=== PATIENT | male | born 1960 | race Caucasian/White ===

== ENCOUNTER → 2019-07-13 08:30 | Outpatient (BNVA) | payer MEDICAID, SELFPAY | PROVIDERS: Family Provider Internal Medicine; Visit Provider Nurse Practitioner Family | DX: N41.9 Inflammatory disease of prostate, unspecified (principal); N40.1 Benign prostatic hyperplasia with lower urinary tract symptoms; N13.8 Other obstructive and reflux uropathy; N52.9 Male erectile dysfunction, unspecified | CPT/HCPCS: 81001 ==

== ENCOUNTER → 2019-09-07 09:52 | Outpatient (BNVA) | payer MEDICAID, SELFPAY | PROVIDERS: Family Provider Internal Medicine; PCP Internal Medicine; Visit Provider Urology | DX: N13.8 Other obstructive and reflux uropathy (principal); N40.1 Benign prostatic hyperplasia with lower urinary tract symptoms; R30.0 Dysuria | CPT/HCPCS: 81001 ==

== ENCOUNTER → 2019-12-20 08:21 | Outpatient (BNVA) | payer MEDICAID, SELFPAY | PROVIDERS: Family Provider Internal Medicine; PCP Internal Medicine; Visit Provider Urology | DX: N40.1 Benign prostatic hyperplasia with lower urinary tract symptoms (principal); N13.8 Other obstructive and reflux uropathy | CPT/HCPCS: 81001 ==

== ENCOUNTER → 2020-03-07 08:15 | Outpatient (BNVA) | payer MEDICAID, SELFPAY | PROVIDERS: Family Provider Internal Medicine; PCP Internal Medicine; Visit Provider Urology | DX: N41.1 Chronic prostatitis (principal); N40.1 Benign prostatic hyperplasia with lower urinary tract symptoms; N13.8 Other obstructive and reflux uropathy; A63.0 Anogenital (venereal) warts | CPT/HCPCS: 81003 ==

== ENCOUNTER 2020-07-09 08:50 | Outpatient (CLI) | payer MEDICAID, SELFPAY ==
[2020-07-09 09:25] VITALS: BMI 26.4
--- NOTE | 2020-07-09 09:30 | ECG_ITS ---
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 Interpretive Statements NAME OF STUDY: LEXISCAN SESTAMIBI STRESS TEST INDICATION: Chest Pain PROCEDURE: At the baseline, the blood pressure was 139/85 mmHg, oxygen saturation 97% with a heart rate of 50 bpm. The electrocardiogram showed sinus bradycardia, normal axis with possible old anteroseptal infarct. The Lexiscan was infused over a period of 20 seconds. A total of 0.4 milligrams of Lexiscan was infused. The stress phase was continued for a total of 5 minutes. Heart rate at the end of the stress phase was 146 bpm, oxygen saturation of 95% with a blood pressure of 206/86 mmHg. The EKG at the peak infusion revealed sinus tachycardia with 1 to 1-1/[address] segment depression in inferolateral leads. Sestamibi was injected 20 seconds after the Lexiscan infusion. Blood pressure at the end of the recovery phase was 131/94 mmHg, oxygen saturation 96% with a heart rate of 76 beats per minute. CONCLUSION: 1. Equivocal EKG changes with the LexiScan infusion. 2. No LexiScan induced chest pain or cardiac arrhythmia. 3. Normal blood pressure and heart rate response. 4. Sestamibi/sestamibi perfusion scan pending; see separate report. Electronically Signed On 07-12-2020 17:40:55 CDT by Sharon Hanna M.D. [id number]
--- NOTE | 2020-07-09 09:31 | NMCV_ITS ---
NM concepcion perf SPECT r/s* [id number] Glenn Barron Age: 59 Gender: M : 1960 Exam Date: 07/09/2020 10:30 Ordering Phys: Chadd Diaz DO Technologist: RACHEL Gonzalez Exam Location: [facility] Indications: Chest pain STRESS TEST Please see separate stress test report in [facility] for full findings IMAGE PROTOCOL Rest/Stress 1 Exercise Day Radiopharmaceutical Dose (mCi) Administration Site Administered by Rest: Tc-99m 10.8 IV RACHEL Gonzalez Sestamibi Stress:Tc-99m 33.0 IV RACHEL Gabriel Sestamibi Rest: 09-Jul-2020 60 Discovery 630 Stress: 09-Jul-2020 30 Discovery 630 Radiopharmaceutical was injected at 88 % maximum heart rate. Images obtained in supine and prone position. SPECT RESULTS Technical Quality: Good Raw Data Analysis: Normal Image Corrections: No attenuation or motion correction applied Summed Stress Score: 4 Summed Rest Score: 7 Summed Difference Score: 0 PERFUSION FINDINGS Small sized perfusion abnormality of moderate severity of mid to apical inferior, mid to apical inferolateral and apical bhatia on rest images with improved tracer uptake on stress images. FUNCTIONAL RESULTS (calculated via Gated SPECT) Stress Image LV EF (%): 79 Stress EDV (mL):89 TID: 0.75 Stress ESV (mL):19 FUNCTIONAL FINDINGS: The left ventricle is normal in size. Transient Ischemia Dilatation of 0.75. There is normal left ventricular systolic function. The left ventricular ejection fraction is normal with a value of 79%. There is normal left ventricular wall thickening. Normal end-diastolic and end-systolic volumes. IMPRESSIONS 1. Small sized perfusion abnormality of mid to apical inferior, mid to apical inferolateral and apical bhatia with improved tracer uptake on stress images. 2. This very likely represents attenuation artifact in absence of regional wall motion abnormality. 3. Overall left ventricular systolic function is normal without regional wall motion abnormalities. 4. The left ventricular ejection fraction is normal with a value of 79%. 5. No coronary ischemia based on the study. Sharon Hanna MD (Electronically Signed) Final Date: 12 July 2020 17:38 S
[2020-07-09 12:08] VITALS: BP 132/84; PULSE 87
== END 2020-07-09 08:51 | disposition home or self-care (01) ==
LOC: CDL 08:54
PROVIDERS: PCP Internal Medicine; Visit Provider Internal Medicine
DX: R07.9 Chest pain, unspecified (principal)
CPT/HCPCS: 78452; 93017; A9500

== ENCOUNTER → 2021-03-07 08:06 | Outpatient (BNVA) | payer MEDICAID, SELFPAY | PROVIDERS: PCP Internal Medicine; Visit Provider Urology | DX: Z12.5 Encounter for screening for malignant neoplasm of prostate (principal); N13.8 Other obstructive and reflux uropathy; N41.1 Chronic prostatitis; N40.1 Benign prostatic hyperplasia with lower urinary tract symptoms | CPT/HCPCS: 81003; G0103 ==

== ENCOUNTER 2021-04-12 08:13 | Inpatient (IN) | payer MEDICAID, SELFPAY ==
[2021-04-12] VITALS (19 sets, daily range): BP systolic 113–138; BP diastolic 69–95; PULSE 63–108; RESP 13–20; TEMP 36.4–36.9; O2SAT 78–97; BMI 26.7
[2021-04-12 08:59] LABS: ABG PCO2 39.6 mmHg (35-45); ABG PH Result 7.47 (7.35-7.45); Alveolar-Arterial Oxygen Gradi 28.3 mmHg (5-10); Base Excess ABG 4.9 mmol/L (-2.0-2.0); Blood Gas Allen Test Pos; Blood Gas Operator Identificat CAK; Blood Gas Sample Site Radial, left; Blood Gas Sample Type Arterial; Carboxyhemoglobin 1.4 %THgb (0.4-20.1); HCO3 ABG 28.9 mmol/L (22-26); HGB O2 Sat 88.5 % (95-100); Ionized Calcium Level - ABG 1.2 mmol/L (1.1-1.4); Methemoglobin 0.7 % (0.4-1.5); Oxygen Device NC; Oxygen Saturation ABG 90.5; Total Hemoglobin 15.3 g/dL (14-18)
--- NOTE | 2021-04-12 09:26 | XR_ITS ---
WS: [id number] XR chest 1V portable [id number] REASON FOR EXAM: dyspnea/hypoxia FINDINGS: Compared to previous examination of 05/30/2020 there appears to be an ill-defined area of opacity in th e right mid lung field adjacent to the minor fissure. Possibly similar abnormality in the medial righ t lower lung. No other significant interval change or new finding. XR/XR chest 1V portable [id number] IMPRESSION: Lung opacities of unknown chronicity in the right lung which may represent area s of mucous plugging or atelectasis however early findings of pneumonitis not r eadily excluded. Follow-up chest x-ray is recommended as clinically warranted.
--- NOTE | 2021-04-12 09:54 | W.ED.COVID ---
HPI - COVID General: Chief Complaint: Shortness of Breath/Dyspnea Stated Complaint: LOW 02, FEVER, COUGH, WEAKNESS Time Seen by Provider: 04/12/21 08:31 Triage information: Has fever, cough or shortness of breath. Exposure to COVID + person last 14 days History of Present Illness: HPI Narrative: 60-year-old male who presents to the emergency room from his primary care doctor's office. He has significant COVID-like symptoms. He has been sick for the last 10 days he is increasingly shortness of breath myalgia and fever. He is not having any labored respirations. He reported O2 sats at 75% at the doctor's office. We had a little bit better when he first arrived here he was 78% on room air at 6 L by nasal cannula patient sats were around 90 to 91% he was changed over to heated high flow. He has had some loose stools but that is already resolved. Has not previously been vaccinated. MD complaint: has COVID symptoms Prior covid testing: no COVID 19 common symptoms: positive fever(s), chills, cough, non-productive cough, dyspnea, fatigue, body aches, nasal congestion and diarrhea COVID 19 other sytmptoms: positive requiring oxygen; negative chest pain Onset (ago): day(s) (10) Severity: severe Treatment prior to arrival: none COVID Results: SARS-CoV-2 (PCR) Detected (NOT DETECT) A 04/12/21 09:47 04/12/21 Coronavirus Type 229E (PCR) Not detected (NOT DETECT) 04/12/21 09:47 04/12/21 Review of Systems Const: Reports: fever(s), chills, body aches and fatigue ENMT: Reports: nasal congestion Card: Denies: chest pain, edema, dyspnea on exertion or orthopnea Resp: Reports: dyspnea and non-productive cough GI: Reports: diarrhea : Denies: flank pain, dysuria, urinary frequency or urinary urgency Skin/Breast: Denies: rash or pruritus PFSH ED PFSH: Medical History (Updated 04/15/21 @ 08:06 by Ba Oliver DO) Anxiety Back fracture BPH w urinary obs/LUTS Chronic back pain Colon polyps Erectile dysfunction GERD (gastroesophageal reflux disease) Surgical History History of surgery of head Family History Mother , 86 No problems noted. Father , 83 Cancer colon Social History (Updated 04/12/21 @ 10:28 by Richie Tovar MD) Smoking and tobacco status: former smoker Alcohol intake: current Alcohol intake frequency: 0-2 Drinks per Day Substance/Drug Use: current Substance/Drug use frequency: daily Substance/Drug use type: Marijuana Marital status: Single Current occupational status: disabled History of recent travel: No Physical Exam Const: GENERAL APPEARANCE: cooperative and comfortable ORIENTATION/CONSCIOUSNESS: Yes awake, Yes oriented to person, Yes oriented to place and Yes oriented to time HENMT: COMMON NORMALS: normocephalic, atraumatic and hearing grossly normal bilaterally HEAD & SCALP: normocephalic and atraumatic Eye: COMMON NORMALS: Equal, round and reactive pupils present, EOMs intact bilaterally, conjunctivae normal and no scleral icterus CONJUNCTIVA: Yes conjunctivae normal PUPIL: Yes Equal, round and reactive pupils present Neck/C-Spine: COMMON NORMALS: full ROM, no lymphadenopathy, supple and no JVD Lymph: LYMPHATIC: no lymphadenopathy noted and no lymphedema noted Resp: COMMON NORMALS: normal respiratory effort, No retractions and No use of accessory muscles AUSCULTATION: crackles and wheezes Cardio: COMMON NORMALS: no JVD, regular rate, regular rhythm and No murmurs present (Cardio) RATE: regular rate RHYTHM: regular rhythm GI: COMMON NORMALS: Soft to palpation and No hepatosplenomegaly present AUSCULTATION: Yes normoactive bowel sounds PALPATION: Yes Soft to palpation, No Tenderness to palpation present (GI), No Guarding due to palpation present (GI) and Yes No hepatosplenomegaly present Extremity: COMMON NORMALS: normal to inspection, capillary refill normal, no clubbing, cyanosis or edema, no calf tenderness and no pedal edema Neuro: SENSORIUM/ORIENTATION: Yes oriented to person, Yes oriented to place and Yes oriented to time Skin: COMMON NORMALS: no rashes or lesions noted GENERAL SKIN EXAM: no rashes or lesions noted Course Vital Signs: Vital signs: Vital Signs Temperature 98.4 F 04/15/21 07:45 Pulse Rate 76 04/15/21 07:45 Respiratory Rate 16 04/15/21 07:45 Blood Pressure 122/79 04/15/21 07:45 Pulse Oximetry 92 04/15/21 07:45 MDM - COVID MDM Narrative: Medical decision making narrative: Presents with room air O2 sats at 78% improved with oxygen supplementation. Patient is COVID-positive. Discussed with hospitalist orders written. Lab Data: Labs: Lab Results 04/12/21 04/12/21 04/12/21 08:48 09:47 09:47 WBC 7.9 10^3/uL 10^3/ uL (4.0-10.0) RBC 4.89 10^6/uL 10^6 /uL (4.1-5.3) Hgb 14.9 g/dL g/dL (11.7-16.6) Hct 43.5 % % (42.0-52.0) MCV 89.0 fl fl (80-94) MCH 30.5 pg pg (28.0-34.0) MCHC 34.3 g/dL g/dL (30.0-36.0) RDW 11.6 % L % (12.1-15.1) Plt Count 331 10^3/cmm 10^3 /cmm (130-400) MPV 10.4 fL fL (7.4-10.4) Neut % (Auto) 84.9 % % Lymph % (Auto) 5.6 % % [place] % (Auto) 8.7 % % Eos % (Auto) 0.1 % % Baso % (Auto) 0.3 % % Neut # (Auto) 6.70 10^3/uL 10^3 /uL (1.8-7.7) Lymph # (Auto) 0.4 10^3/uL L 10^ 3/uL (0.8-4.8) [place] # (Auto) 0.7 10^3/uL 10^3/ uL (0.2-0.9) Eos # (Auto) 0.0 10^3/uL 10^3/ uL (0.0-0.8) Baso # (Auto) 0.0 10^3/uL 10^3/ uL (0.0-0.1) Nucleated RBC % (a uto) 0 % % Nucleated RBCs # 0.0 /100WBC /100W BC D-Dimer 1.04 ug/mIFEU H u g/mIFEU (0-0.59) Specimen Type Arterial Sample Site Radial, left ABG pH 7.47 H (7.35-7.45) ABG pCO2 39.6 mmHg mmHg (35-45) ABG pO2 55.0 mmHg L mmHg (80.0-100.0) ABG HCO3 28.9 mmol/L H mmo l/L (22-26) ABG O2 Saturation 90.5 ABG Base Excess 4.9 mmol/L H mmol /L (-2.0-2.0) Keshav Test Pos A-a O2 Gradient 28.3 mmHg H mmHg (5-10) Hematocrit 47.0 % % (42-52) Hgb O2 Saturation 88.5 % L % (95-100) Carboxyhemoglobin 1.4 %THgb %THgb (0.4-20.1) Methemoglobin 0.7 % % (0.4-1.5) Total Hemoglobin 15.3 g/dL g/dL (14-18) Sodium 136.0 mmol/L mmol /L (131-143) Potassium 3.0 mmol/L L mmol /L (3.5-5.0) Glucose 129.0 mg/dL H mg/ dL (70-115) Ionized Calcium 1.2 mmol/L mmol/L (1.1-1.4) O2 Delivery Device Nc O2 Liters/Min 5.0 % % FiO2 45.0 % % Sales Representative Aircraft ID Cak Chloride Carbon Dioxide Anion Gap BUN Creatinine GFR Calculation Calculated Osmolal ity Lactic Acid Calcium Magnesium Total Bilirubin AST ALT Alkaline Phosphata se C-Reactive Protein Total Protein Albumin Globulin Procalcitonin Coronavirus 229E ( PCR) SARS-CoV-2 (PCR) 04/12/21 04/12/21 04/12/21 09:47 09:47 09:47 WBC RBC Hgb Hct MCV MCH MCHC RDW Plt Count MPV Neut % (Auto) Lymph % (Auto) [place] % (Auto) Eos % (Auto) Baso % (Auto) Neut # (Auto) Lymph # (Auto) [place] # (Auto) Eos # (Auto) Baso # (Auto) Nucleated RBC % (a uto) Nucleated RBCs # D-Dimer Specimen Type Sample Site ABG pH ABG pCO2 ABG pO2 ABG HCO3 ABG O2 Saturation ABG Base Excess Keshav Test A-a O2 Gradient Hematocrit Hgb O2 Saturation Carboxyhemoglobin Methemoglobin Total Hemoglobin Sodium 133 mmol/L L mmol /L (136-145) Potassium 3.2 mmol/L L mmol /L (3.5-5.1) Glucose 116 mg/dL H mg/dL (65-115) Ionized Calcium O2 Delivery Device O2 Liters/Min FiO2 Sales Representative Aircraft ID Chloride 94 mmol/L L mmol/ L (98-107) Carbon Dioxide 28 mmol/L mmol/L (22-29) Anion Gap 14.2 (5-19) BUN 8 mg/dL mg/dL (8-23) Creatinine 0.7 mg/dL mg/dL (0.7-1.2) GFR Calculation 115.0 mL/min mL/m in (90-130) Calculated Osmolal ity 275 mOsm/kg L mOs m/kg (285-295) Lactic Acid 1.4 mmol/L mmol/L (0.5-2.2) Calcium 8.4 mg/dL L mg/dL (8.5-10.5) Magnesium Total Bilirubin 0.4 mg/dL mg/dL (0.15-1.2) AST 38 U/L U/L (0-40) ALT 31 U/L U/L (0-41) Alkaline Phosphata se 88 IU/L IU/L (40-130) C-Reactive Protein 103.4 mg/L H mg/L (0.0-4.9) Total Protein 6.7 g/dL g/dL (6.6-8.7) Albumin 3.4 g/dL L g/dL (3.5-5.2) Globulin 3.3 g/dL g/dL (1.3-4.6) Procalcitonin 0.07 ng/mL ng/mL (0-0.5) Coronavirus 229E ( PCR) Not detected (NOT DETECT) SARS-CoV-2 (PCR) Detected A (NOT DETECT) 04/12/21 09:47 WBC RBC Hgb Hct MCV MCH MCHC RDW Plt Count MPV Neut % (Auto) Lymph % (Auto) [place] % (Auto) Eos % (Auto) Baso % (Auto) Neut # (Auto) Lymph # (Auto) [place] # (Auto) Eos # (Auto) Baso # (Auto) Nucleated RBC % (a uto) Nucleated RBCs # D-Dimer Specimen Type Sample Site ABG pH ABG pCO2 ABG pO2 ABG HCO3 ABG O2 Saturation ABG Base Excess Keshav Test A-a O2 Gradient Hematocrit Hgb O2 Saturation Carboxyhemoglobin Methemoglobin Total Hemoglobin Sodium Potassium Glucose Ionized Calcium O2 Delivery Device O2 Liters/Min FiO2 Sales Representative Aircraft ID Chloride Carbon Dioxide Anion Gap BUN Creatinine GFR Calculation Calculated Osmolal ity Lactic Acid Calcium Magnesium 2.3 mg/dL mg/dL (1.7-2.3) Total Bilirubin AST ALT Alkaline Phosphata se C-Reactive Protein Total Protein Albumin Globulin Procalcitonin Coronavirus 229E ( PCR) SARS-CoV-2 (PCR) COVID Results: SARS-CoV-2 (PCR) Detected (NOT DETECT) A 04/12/21 09:47 04/12/21 Coronavirus Type 229E (PCR) Not detected (NOT DETECT) 04/12/21 09:47 04/12/21 Discharge Plan Discharge Patient Disposition: Admitted As Inpatient Admit Provider: Richie Tovar Clinical Impression: Pneumonia due to COVID-19 virus, Acute respiratory failure with hypoxia, Hypokalemia Condition: Stable Coding Level of Care Code ED Relocation Manager for Chg Fwd Exam Comprehensive
[2021-04-12 09:59] LABS: Basophils % 0.3 %; Eosinophils % 0.1 %; Hematocrit 43.5 % (42.0-52.0); Hemoglobin 14.9 g/dL (11.7-16.6); Lymphocytes # 0.4 10^3/uL (0.8-4.8); Lymphocytes % 5.6 %; Mean Corpuscular HGB Conc 34.3 g/dL (30.0-36.0); Mean Corpuscular Hemoglobin 30.5 pg (28.0-34.0); Mean Platelet Volume 10.4 fL (7.4-10.4); Monocytes # 0.7 10^3/uL (0.2-0.9); Monocytes % 8.7 %; Neutrophils % 84.9 %; Nucleated Red Blood Cells % 0 %; Platelet Count 331 10^3/cmm (130-400); Red Blood Count 4.89 10^6/uL (4.1-5.3); Red Cell Distribution Width 11.6 % (12.1-15.1); White Blood Count 7.9 10^3/uL (4.0-10.0)
[2021-04-12 10:17] LABS: Alanine Aminotransferase 31 U/L (0-41); Albumin Level 3.4 g/dL (3.5-5.2); Alkaline Phosphatase 88 IU/L (40-130); Anion Gap 14.2 (5-19); Aspartate Amino Transferase 38 U/L (0-40); Blood Urea Nitrogen 8 mg/dL (8-23); C Reactive Protein 103.4 mg/L (0.0-4.9); Calcium 8.4 mg/dL (8.5-10.5); Carbon Dioxide 28 mmol/L (22-29); Chloride 94 mmol/L (98-107); Globulin 3.3 g/dL (1.3-4.6); Glucose 116 mg/dL (65-115); Osmolality Calculated 275 mOsm/kg (285-295); Potassium 3.2 mmol/L (3.5-5.1); Sodium 133 mmol/L (136-145); Total Bilirubin 0.4 mg/dL (0.15-1.2); Total Protein 6.7 g/dL (6.6-8.7)
[2021-04-12 10:18] LABS: Lactic Sepsis W/Reflex 1.4 mmol/L (0.5-2.2)
[2021-04-12 10:23] LABS: D Dimer 1.04 ug/mIFEU (0-0.59)
[2021-04-12 10:24] LABS: Procalcitonin 0.07 ng/mL (0-0.5)
--- NOTE | 2021-04-12 10:25 | PM.HP ---
Providers/Chief Complaint Primary Care Provider: Chadd Diaz DO Chief Complaint: LOW 02, FEVER, COUGH, WEAKNESS History of Present Illness Glenn Barron is a 60 year old male presents to the ER from doctor's office with shortness of breath. He has history of cough, fever, congestion, body aches that started 9 days ago. His shortness of breath started 2-3 days ago and has been worsening. He tried taking amoxicillin from the feed store and Tylenol for the past 2 days. He is not vaccinated and has no previous history of COVID. He arrived to the ER with oxygen sat 78%. No vomiting or diarrhea. He still continues to take p.o. In the emergency department he received remdesivir, dexamethasone. Review of Systems General: Reports: 10 or more systems reviewed and unremarkable except in HPI and below Const: Reports: fever(s), chills, body aches and fatigue Eyes: Denies: change in vision ENMT: Denies: throat pain Card: Denies: chest pain Resp: Reports: dyspnea and non-productive cough GI: Denies: abdominal pain or hematochezia : Denies: flank pain Musc: Denies: neck pain Skin/Breast: Denies: rash Neuro: Reports: headache(s) Psych: Denies: depression Endo: Denies: polyuria Alex/Lymph: Denies: easy bruising All/Imm: Denies: urticaria Medications/Allergies Home Medications Medication Instructions Recorded Confirmed Last Taken Type alprazolam 1 mg tablet 1 mg PO QID PRN 07/13/19 04/12/21 Unknown History finasteride 5 mg tablet 5 mg PO QAM 07/13/19 04/12/21 Unknown History omeprazole 20 mg capsule,delayed 20 mg PO QAM 07/13/19 04/12/21 Unknown History release sildenafil 100 mg tablet 100 mg PO DAILY PRN #20 tab 03/07/21 04/12/21 Unknown Rx acetaminophen [Tylenol Ex Str 500 mg PO Q4H PRN 04/12/21 04/12/21 04/12/21 05:30 History Rapid Release] tamsulosin 0.8 mg PO BEDTIME 04/12/21 04/12/21 Unknown History Allergies Allergy/AdvReac Type Severity Reaction Status Date / Time No Known Allergies Allergy Verified 04/12/21 09:52 PFSH Acute PFSH: Medical History (Updated 04/12/21 @ 10:43 by Richie Tovar MD) Anxiety Back fracture BPH w urinary obs/LUTS Chronic back pain Colon polyps Erectile dysfunction GERD (gastroesophageal reflux disease) Surgical History History of surgery of head Family History Mother , 86 No problems noted. Father , 83 Cancer colon Social History (Updated 04/12/21 @ 10:28 by Richie Tovar MD) Smoking and tobacco status: former smoker Alcohol intake: current Alcohol intake frequency: 0-2 Drinks per Day Substance/Drug Use: current Substance/Drug use frequency: daily Substance/Drug use type: Marijuana Marital status: Single Current occupational status: disabled History of recent travel: No Other [facility] information: Denies history of surgery. Vitals/I&O/Wt Last Vital Signs Temp 98.4 F 04/12/21 08:33 Pulse 108 H 04/12/21 09:50 Resp 18 04/12/21 09:50 BP 132/70 04/12/21 09:50 Pulse Ox 93 04/12/21 09:50 Weight last 48 hrs Weight 90.718 kg Physical Exam Narrative: EXAM NARRATIVE: General exam is a white male, conversant, reporting he feels much less short of breath on oxygen. From what is documented he was significantly hypoxic, tachypneic, using accessory muscles previous to being put on high flow oxygen HEENT: Atraumatic normocephalic. Oropharynx clear. Neck is supple no lymphadenopathy or thyromegaly Cardiovascular slight tachycardia, no murmur Lungs a few crackles bilaterally Abdomen is soft, positive bowel sounds. No obvious organomegaly exam was deferred Extremities no cyanosis clubbing or edema, cap refill brisk Skin no rash Neuro no focal deficits. Data : 04/12/21 09:47 04/12/21 09:47 Micro: Microbiology 04/12/21 09:47 Blood Culture - Preliminary Blood SPECIMEN COLLECTED 04/12/21 09:30 Blood Culture - Preliminary Blood SPECIMEN COLLECTED Other data: Dimer is 1.04 ABG demonstrates a pH of 7.47, PCO2 40, PO2 of 55. This was done on 5 L Lactic acid 1.4 Calcium 8.4 LFTs normal CRP 103 Procalcitonin 0.07 Chest x-ray demonstrates some bilateral lung interstitial infiltrates. Blood cultures were drawn, sputum cultures ordered A&P Assessment and plan (1) Pneumonia due to COVID-19 virus: Continue dexamethasone started in the emergency department Continue remdesivir Pulmonary toilet Budesonide twice daily Repeat D-dimer tomorrow. If increasing consider CTA Lovenox for DVT prophylaxis Incentive spirometry, Acapella Considering severity of illness, no evidence of bacterial infection, start baricitinib Levaquin empirically Sputum culture. Blood cultures were drawn as well. Initiate baricitinib secondary to severity of illness. Status: Acute (2) Acute respiratory failure with hypoxia: See above Status: Acute (3) Hypokalemia: Supplement, check magnesium Status: Acute (4) Anxiety: Continue home medications Status: Acute Additional A&P Information Full code Lovenox for DVT prophylaxis Attestations Medical Necessity Statement*: Will need greater than 2 midnight stay for severe COVID-19 pneumonia with respiratory failure requiring high flow oxygen Time Spent in Patient Care: Greater than 35 minutes Coding Level of Care Code Acute Automotive Engineering Technician for [facility] Diagnoses Pneumonia due to COVID-19 virus U07.1; J12.82 Acute respiratory failure with hypoxia J96.01 Hypokalemia E87.6 Anxiety F41.9
[2021-04-12 11:04] LABS: Magnesium 2.3 mg/dL (1.7-2.3)
[2021-04-12] MEDS: potassium chloride ER 20 mEq Tablet 40 MEQ PO (11:08)
[2021-04-12] MEDS: dexamethasone 10 mg/mL INJ 6 MG IVP (11:08)
[2021-04-12] MEDS: remdesivir 200 MG in sodium chloride 0.9% (100 ml) 60 ML 100 MG IV (11:09)
[2021-04-12 11:44] LABS: Adenovirus Not Detected (NOT DETECT); Chlamydia Pneumoniae Not Detected (NOT DETECT); Coronavirus 229E,HKU1,NL63,OC4 Not Detected (NOT DETECT); Human Metapneumovirus Not Detected (NOT DETECT); Human Rhinovirus/Enterovirus Not Detected (NOT DETECT); Influenza A Not Detected (NOT DETECT); Influenza A H1 Not Detected (NOT DETECT); Influenza A H1-2009 Not Detected (NOT DETECT); Influenza A H3 Not Detected (NOT DETECT); Influenza B Not Detected (NOT DETECT); Mycoplasma Pneumoniae Not Detected (NOT DETECT); Parainfluenza Virus Type 1 Not Detected (NOT DETECT); Parainfluenza Virus Type 2 Not Detected (NOT DETECT); Parainfluenza Virus Type 3 Not Detected (NOT DETECT); Parainfluenza Virus Type 4 Not Detected (NOT DETECT); Respiratory Syncytial Virus A Not Detected (NOT DETECT); Respiratory Syncytial Virus B Not Detected (NOT DETECT); SARS-COV-2 Detected (NOT DETECT)
[2021-04-12] MEDS: levofloxacin-dextrose 5 % 750 MG/150 ML PREMIX 100 MG IV (15:52)
[2021-04-12] MEDS: enoxaparin 40 mg/0.4 mL Syringe SUBCUT (15:52)
--- NOTE | 2021-04-12 17:07 | PC.NURSE ---
Notified of COVID (+)
[2021-04-12] MEDS: tamsulosin 0.4 mg Capsule 0.8 MG PO (20:09)
[2021-04-12] MEDS: ALPRAZolam 0.5 mg Tablet 1 MG PO (20:09)
[2021-04-12] MEDS: budesonide 0.5 mg/2 mL Neb INHALATION (20:30)
[2021-04-12] MEDS: ipratropium-albuterol 3 mL Neb INHALATION (20:30)
--- NOTE | 2021-04-12 20:40 | PC.NURSE ---
Patient had stated to this nurse that he was upset and anxious about not getting his medication the way he takes it at home while this nurse was administering his night time medications. Patient stated he usually takes 1mg Xanax around 0900, [id number], and takes two 1mg Xanax at 3124-0304 to help him sleep and takes ex-lax. This nurse informed the patient that I would get a hold of the doctor and ask him to increase his medications to his home dose. This nurse educated the patient before talking to the doctor that they do not like to order high doses of xanax on covid patients because it can cause respiratory depression and that the patient's respiratory status was already depressed due to having covid. After speaking with the doctor, this nurse went back to inform the patient that his xanax was unable to be increased due to the respiratory depression and that the doctor would be putting in the order for a laxative. Patient stated, Well if I can't get them to order it the way I take it at home, I will just have my girlfriend bring in my medication from home. This nurse educated the patient that he would still have to have an order for it. Patient stated, I do have a prescription for it. This nurse continued to educate the patient that he would not be able to take his own home medication per his own schedule because nursing staff would need to know what medications and the strength of the medications in case something were to happen and that the patient still runs the risk of being in respiratory depression.
[2021-04-12] MEDS: sennosides 8.6 mg Tablet PO (22:24)
[2021-04-13] VITALS (18 sets, daily range): BP systolic 101–144; BP diastolic 63–75; PULSE 65–86; RESP 16–23; TEMP 36.5–37; O2SAT 89–94
[2021-04-13] MEDS: ipratropium-albuterol 3 mL Neb INHALATION ×5 (02:42→20:56)
[2021-04-13 04:15] LABS: Basophils % 0.1 %; Hematocrit 40.7 % (42.0-52.0); Lymphocytes # 0.5 10^3/uL (0.8-4.8); Mean Corpuscular HGB Conc 34.4 g/dL (30.0-36.0); Mean Corpuscular Hemoglobin 30.4 pg (28.0-34.0); Mean Corpuscular Volume 88.5 fl (80-94); Mean Platelet Volume 10.5 fL (7.4-10.4); Monocytes # 0.6 10^3/uL (0.2-0.9); Monocytes % 8.5 %; Neutrophils # 5.73 10^3/uL (1.8-7.7); Neutrophils % 84.1 %; Nucleated Red Blood Cells % 0 %; Platelet Count 345 10^3/cmm (130-400); Red Cell Distribution Width 11.5 % (12.1-15.1); White Blood Count 6.8 10^3/uL (4.0-10.0)
[2021-04-13 04:20] LABS: ABG PCO2 40.1 mmHg (35-45); ABG PH Result 7.48 (7.35-7.45); Arterial Blood Gas Hematocrit 47.6 % (42-52); Base Excess ABG 5.4 mmol/L (-2.0-2.0); Blood Gas Allen Test Pos; Blood Gas Sample Type Arterial; HCO3 ABG 29.5 mmol/L (22-26); PO2 ABG 55.8 mmHg (80.0-100.0)
[2021-04-13 04:23] LABS: Blood Gas Sample Site Radial, right; Oxygen Device HAG
[2021-04-13 04:34] LABS: Lactate (Lactic Acid level) 1.8 mmol/L (0.5-2.2)
[2021-04-13 04:39] LABS: INR 1.08 (0.8-1.2)
[2021-04-13 04:40] LABS: D Dimer 1.02 ug/mIFEU (0-0.59)
[2021-04-13 04:42] LABS: NT Pro B Type Natriuretic Pept 61 pg/mL (0-125); Procalcitonin 0.06 ng/mL (0-0.5)
[2021-04-13] MEDS: ALPRAZolam 0.5 mg Tablet 1 MG PO (04:46)
[2021-04-13 04:55] LABS: Alanine Aminotransferase 29 U/L (0-41); Albumin Level 3.2 g/dL (3.5-5.2); Alkaline Phosphatase 85 IU/L (40-130); Anion Gap 20.7 (5-19); Aspartate Amino Transferase 35 U/L (0-40); Blood Urea Nitrogen 13 mg/dL (8-23); C Reactive Protein 91.1 mg/L (0.0-4.9); Calcium 8.5 mg/dL (8.5-10.5); Carbon Dioxide 22 mmol/L (22-29); Chloride 98 mmol/L (98-107); Creatine Phosphokinase 65 U/L (39-308); Globulin 3.4 g/dL (1.3-4.6); Glomerular Filtration Rate 137.4 mL/min (90-130); Glucose 107 mg/dL (65-115); Magnesium 2.2 mg/dL (1.7-2.3); Osmolality Calculated 285 mOsm/kg (285-295); Phosphorus 3.2 mg/dL (2.5-4.5); Potassium 3.7 mmol/L (3.5-5.1); Sodium 137 mmol/L (136-145); Total Bilirubin 0.3 mg/dL (0.15-1.2); Total Protein 6.6 g/dL (6.6-8.7)
--- NOTE | 2021-04-13 05:06 | PC.NURSE ---
MEHUL Ruano informed the PRADEEP Shields Charge that the patient was complaining that he did not feel like this nurse had been in his room enough and that he was going to be speaking to the printed circuit boards contact printer due to this nurse being young and his medications not being administered the way he would like. This nurse went to speak with patient and asked the patient if he needed anything. Patient stated, No. I just thought the doctor said I would be able to get the Xanax around 0230 again. This nurse informed the patient that I had his Xanax with me to administer to him. After giving the patient his medications, this nurse educated the patient that his Xanax is ordered every six hours as needed and he would have to ask for it if he felt like he was getting anxious if he was not showing signs of anxiety. Patient stated, Well I am going to need it every six hours then or I am not going to be able to sleep. Patient stated I will probably just start saving the pills then and take them all together that way I get the dose I need. This nurse continued to educate the patient that he would not be able to do that again due to the medication causing more respiratory depression on top of his already depressed respiratory status. This nurse asked the patient if he needed anything else and informed the patient that I would be back in within an hour to administer some more of his medications because I could not give them before 0500. The patient stated he did not need anything else at this time.
[2021-04-13] MEDS: remdesivir 100 MG in sodium chloride 0.9% (100 ml) 80 ML IV (05:43)
[2021-04-13] MEDS: finasteride 5 mg Tablet PO (05:43)
[2021-04-13] MEDS: dexamethasone 10 mg/mL INJ 6 MG IVP (08:59)
[2021-04-13] MEDS: pantoprazole DR 40 mg Tablet PO (08:59)
--- NOTE | 2021-04-13 09:42 | CTR_ITS ---
PROCEDURE INFORMATION: Exam: CTA Chest With Contrast Exam date and time: 04/13/2021 9:42 AM Age: 60 years old Clinical indication: Cough and shortness of breath; Patient HX: SOB. Cough, covid+; Additional info: Covid 19 TECHNIQUE: Imaging protocol: Computed tomographic angiography of the chest with contrast. 3D rendering (Not supervised by radiologist): MIP and/or 3D reconstructed images were created by the technologist. Radiation optimization: All CT scans at this facility use at least one of these dose optimization techniques: automated exposure control; mA and/or kV adjustment per patient size (includes targeted exams where dose is matched to clinical indication); or iterative reconstruction. Contrast material: .OMNI 350; Contrast volume: 59 ml; Contrast route: INTRAVENOUS (IV); COMPARISON: CR XR chest 1V portable [id number] 04/12/2021 9:32 AM RADIATION DOSE METRICS: Total DLP (mGy-cm): 640.45 FINDINGS: Pulmonary arteries: No sign of acute pulmonary embolism. Aorta: No thoracic aortic aneurysm or dissection when allowing for pulsation artifact. Lungs: There is bilateral, multifocal pulmonary ground-glass opacification which could be due to pneumonia, including the possibility of COVID-19 pneumonia. There is bilateral paraseptal emphysema. There is right lower lobe bronchiectasis. Prior pulmonary granulomatous disease. Pleural spaces: No pneumothorax. No pleural effusion. Heart: The heart is not enlarged. No pericardial effusion. There is coronary artery disease. Lymph nodes: Slightly prominent, noncalcified mediastinal and hilar lymph nodes. There are calcified right hilar and adjacent mediastinal lymph nodes from prior granulomatous disease. Kidneys and ureters: There is a 1.9 cm simple appearing left renal cyst. Bones/joints: No acute osseous abnormality. Soft tissues: No acute soft tissue abnormality. CT/CT angio chest PE protcl [id number] IMPRESSION: 1. No sign of acute pulmonary embolism. 2. Bilateral airspace disease which could be due to COVID-19 pneumonia. COMMENTS: Consistent with the [employer]'s Incidental Findings Committee white paper (J Am Jose Luis Radiol 2018): Any incidental renal lesion less than 1 cm or classified as too small to characterize, or any incidental cystic renal lesion characterized as simple-appearing, is likely benign. No follow-up imaging is recommended for these lesions per consensus recommendations based on imaging criteria.
--- NOTE | 2021-04-13 09:43 | ECG_ITS ---
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
--- NOTE | 2021-04-13 11:43 | ECG_ITS ---
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
[2021-04-13 11:48] LABS: Troponin(5th) Baseline 6 ng/L (0-15)
[2021-04-13] MEDS: azithromycin 500 MG in sodium chloride 0.9% 250 ML 250 MG IV (12:37)
[2021-04-13] MEDS: cefTRIAXone 1,000 MG in sodium chloride 0.9% (plus) 50 ML 100 MG IV (12:37)
--- NOTE | 2021-04-13 12:50 | P.PN_ITS ---
Subjective Subjective: Interval history: Patient was seen this morning, he is tell me that he did not get much sleep last night, as he takes alprazolam 1 mg at noon, 2 mg at 6 PM which helps him fall asleep, and he uses another milligram as needed between noon and 6 PM Vitals/I&O/Wt Last Vital Signs Temp 98.6 F 04/13/21 12:00 Pulse 75 04/13/21 12:00 Resp 20 H 04/13/21 12:00 BP 118/70 04/13/21 12:00 Pulse Ox 91 04/13/21 12:00 04/12/21 04/13/21 04/13/21 22:59 06:59 14:59 Intake Total 1010 / 1010 380 / 1390 Output Total 100 / 100 700 / 800 Balance 910 / 910 -320 / 590 Weight last 48 hrs Weight 87.18 kg Weight 90.718 kg Physical Exam Const: COMMON NORMALS: no acute distress and patient oriented x3 Resp: COMMON NORMALS: normal respiratory effort, No retractions and No use of accessory muscles AUSCULTATION: diminished lung sounds diffuse Cardio: COMMON NORMALS: regular rate, regular rhythm, S1 normal heart sound present and S2 normal heart sound present RATE: regular rate RHYTHM: regular rhythm HEART SOUNDS: S1 normal heart sound present and S2 normal heart sound present GI: COMMON NORMALS: Normal to inspection, nondistended, normoactive bowel soun ds present, Soft to palpation and non-tender PALPATION: Yes Soft to palpation Extremity: COMMON NORMALS: no pedal edema Neuro: COMMON NORMALS: patient oriented x3 Psych: COMMON NORMALS: mental status grossly normal Data : 04/13/21 03:47 04/13/21 03:47 Micro: Microbiology 04/12/21 09:47 Blood Culture - Preliminary Blood NEGATIVE TO DATE 04/12/21 09:30 Blood Culture - Preliminary Blood NEGATIVE TO DATE A&P Assessment and plan (1) Pneumonia due to COVID-19 virus: Decadron day 2 of 10 Remdesivir day 2 of 5 Perez cc neb day 2 of 14 Pulmonary toilet Budesonide twice daily CT angiogram of the chest pending Venous ultrasound negative for DVT Incentive spirometry, Acapella Expand antibiotic coverage to Rocephin and azithromycin for second bacterial pneumonia Sputum culture. Blood cultures were drawn as well. Change alprazolam to 1 mg at noon, 2 mg at 6 PM Status: Acute (2) Acute respiratory failure with hypoxia: See above Status: Acute (3) Hypokalemia: Supplement, check magnesium Status: Acute (4) Anxiety: Continue home medications Status: Acute Additional A&P Information Full code Lovenox for DVT prophylaxis Attestations Medical Necessity Statement*: Patient requires hospitalization due to pneumonia due to COVID-19 Coding Level of Care Code Acute Pottery Machine Operator for [facility] Diagnoses Pneumonia due to COVID-19 virus U07.1; J12.82 Acute respiratory failure with hypoxia J96.01 Hypokalemia E87.6 Anxiety F41.9
[2021-04-13] MEDS: enoxaparin 40 mg/0.4 mL Syringe SUBCUT (13:32)
[2021-04-13 14:02] LABS: Troponin 5 2HR 7.07 ng/L (0-15); Troponin 5 2HR Delta 1.07 ABS# (0-10)
[2021-04-13] MEDS: iohexol 350 mg/mL 100 mL Btl IV (14:30)
[2021-04-13] MEDS: budesonide 0.5 mg/2 mL Neb INHALATION ×2 (15:30→20:56)
--- NOTE | 2021-04-13 15:43 | ECG_ITS ---
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
[2021-04-13 18:14] LABS: Troponin 5 6HR 6.17 ng/L (0-15); Troponin 5 6HR Delta 0.17 ng/L (0-12)
--- NOTE | 2021-04-13 18:46 | USR_ITS ---
PROCEDURE INFORMATION: Exam: US Duplex Lower Extremity Veins, Bilateral Exam date and time: 04/13/2021 6:46 PM Age: 60 years old Clinical indication: Shortness of breath; DVT TECHNIQUE: Imaging protocol: Real-time duplex ultrasound of the extremities with 2-D guerra scale, color Doppler flow and spectral waveform analysis with image documentation. Complete exam focused on the bilateral lower extremity veins. COMPARISON: No relevant prior studies available. FINDINGS: Right deep veins: The common femoral, femoral, proximal profunda femoral and popliteal veins are patent. Normal Doppler waveforms. Normal compressibility and/or augmentation response. Right superficial veins: Saphenofemoral junction is patent. Left deep veins: The common femoral, femoral, proximal profunda femoral and popliteal veins are patent. Normal Doppler waveforms. Normal compressibility and/or augmentation response. Left superficial veins: Saphenofemoral junction is patent. Soft tissues: No acute soft tissue abnormality. US/[place] [id number] IMPRESSION: No evidence of deep vein thrombosis.
[2021-04-13] MEDS: tamsulosin 0.4 mg Capsule 0.8 MG PO (19:49)
[2021-04-13] MEDS: sennosides 8.6 mg Tablet PO (19:49)
[2021-04-14] VITALS (20 sets, daily range): BP systolic 102–126; BP diastolic 63–74; PULSE 43–86; RESP 16–24; TEMP 36.4–36.7; O2SAT 90–98
[2021-04-14] MEDS: ipratropium-albuterol 3 mL Neb INHALATION ×4 (02:08→20:14)
[2021-04-14 05:41] LABS: ABG PCO2 39.5 mmHg (35-45); ABG PH Result 7.49 (7.35-7.45); Arterial Blood Gas Hematocrit 49.5 % (42-52); Base Excess ABG 6.1 mmol/L (-2.0-2.0); Blood Gas Allen Test Pos; Blood Gas Operator Identificat glc; Blood Gas Sample Site Radial, right; Blood Gas Sample Type Arterial; HCO3 ABG 29.9 mmol/L (22-26); Oxygen Device HAG; PO2 ABG 50.1 mmHg (80.0-100.0)
[2021-04-14] MEDS: remdesivir 100 MG in sodium chloride 0.9% (100 ml) 80 ML IV (05:43)
[2021-04-14 05:47] LABS: Eosinophils % 0.1 %; Hematocrit 38.9 % (42.0-52.0); Hemoglobin 13.2 g/dL (11.7-16.6); Lymphocytes # 0.5 10^3/uL (0.8-4.8); Lymphocytes % 4.6 %; Mean Corpuscular HGB Conc 33.9 g/dL (30.0-36.0); Mean Corpuscular Hemoglobin 30.7 pg (28.0-34.0); Mean Corpuscular Volume 90.5 fl (80-94); Mean Platelet Volume 10.9 fL (7.4-10.4); Monocytes # 0.7 10^3/uL (0.2-0.9); Monocytes % 6.4 %; Neutrophils # 9.11 10^3/uL (1.8-7.7); Neutrophils % 88.2 %; Nucleated Red Blood Cells % 0 %; Platelet Count 385 10^3/cmm (130-400); Red Cell Distribution Width 11.6 % (12.1-15.1); White Blood Count 10.3 10^3/uL (4.0-10.0)
[2021-04-14 05:55] LABS: INR 1.06 (0.8-1.2)
[2021-04-14 06:07] LABS: Lactate (Lactic Acid level) 1.3 mmol/L (0.5-2.2)
[2021-04-14 06:17] LABS: NT Pro B Type Natriuretic Pept 80 pg/mL (0-125); Procalcitonin 0.05 ng/mL (0-0.5)
[2021-04-14 06:28] LABS: Alanine Aminotransferase 24 U/L (0-41); Albumin Level 2.9 g/dL (3.5-5.2); Alkaline Phosphatase 75 IU/L (40-130); Anion Gap 14.9 (5-19); Aspartate Amino Transferase 23 U/L (0-40); Blood Urea Nitrogen 16 mg/dL (8-23); C Reactive Protein 32.5 mg/L (0.0-4.9); Calcium 8.3 mg/dL (8.5-10.5); Carbon Dioxide 26 mmol/L (22-29); Chloride 101 mmol/L (98-107); Creatine Phosphokinase 112 U/L (39-308); Globulin 2.9 g/dL (1.3-4.6); Glucose 101 mg/dL (65-115); Magnesium 2.4 mg/dL (1.7-2.3); Osmolality Calculated 287 mOsm/kg (285-295); Potassium 3.9 mmol/L (3.5-5.1); Sodium 138 mmol/L (136-145); Total Bilirubin 0.2 mg/dL (0.15-1.2); Total Protein 5.8 g/dL (6.6-8.7)
--- NOTE | 2021-04-14 07:00 | XRR_ITS ---
PROCEDURE INFORMATION: Exam: XR Chest Exam date and time: 04/14/2021 7:00 AM Age: 60 years old Clinical indication: Shortness of breath; Additional info: SOB TECHNIQUE: Imaging protocol: XR of the chest. Views: 1 view. Total images: 1 COMPARISON: CR XR chest 1V portable [id number] 04/12/2021 9:32 AM FINDINGS: Lungs: Bilateral pulmonary opacities are again noted and appear unchanged. Pleural spaces: Unremarkable. No pleural effusion. No pneumothorax. Heart/Mediastinum: Unremarkable. No cardiomegaly. Bones/joints: Osseous structures are unchanged from the prior exam. XR/XR chest 1V portable [id number] IMPRESSION: Bilateral interstitial and mild ground-glass pulmonary opacities are again noted and appear unchanged.
[2021-04-14] MEDS: azithromycin 500 MG in sodium chloride 0.9% 250 ML 250 MG IV (08:48)
[2021-04-14] MEDS: cefTRIAXone 1,000 MG in sodium chloride 0.9% (plus) 50 ML 100 MG IV (08:48)
[2021-04-14] MEDS: finasteride 5 mg Tablet PO (08:53)
[2021-04-14] MEDS: pantoprazole DR 40 mg Tablet PO (08:53)
[2021-04-14] MEDS: FUROsemide 10 mg/mL SDV 4mL 40 MG IVP (08:53)
[2021-04-14] MEDS: dexamethasone 10 mg/mL INJ 6 MG IVP (08:53)
[2021-04-14] MEDS: budesonide 0.5 mg/2 mL Neb INHALATION ×2 (09:15→20:14)
--- NOTE | 2021-04-14 10:43 | P.PN_ITS ---
Subjective Subjective: Interval history: Patient was seen this morning, currently on 4 L 50%, no nausea, vomiting, chest pain, is feeling better Vitals/I&O/Wt Last Vital Signs Temp 98.1 F 04/14/21 08:00 Pulse 78 04/14/21 09:25 Resp 20 H 04/14/21 09:25 BP 108/65 04/14/21 08:00 Pulse Ox 94 04/14/21 09:25 04/13/21 04/14/21 04/14/21 22:59 06:59 14:59 Intake Total 300 / 300 80 / 380 260 / 260 Output Total 850 / 1400 400 / 400 Balance -550 / -1100 80 / -1020 -140 / -140 Weight last 48 hrs Weight 87.18 kg Physical Exam Const: COMMON NORMALS: no acute distress and patient oriented x3 Resp: COMMON NORMALS: normal respiratory effort, No retractions, No use of accessory muscles and clear to auscultation bilaterally AUSCULTATION: clear to auscultation bilaterally Cardio: COMMON NORMALS: regular rate, regular rhythm, S1 normal heart sound present and S2 normal heart sound present RATE: regular rate RHYTHM: regular rhythm HEART SOUNDS: S1 normal heart sound present and S2 normal heart sound present GI: COMMON NORMALS: Normal to inspection, nondistended, normoactive bowel sounds present, Soft to palpation and non-tender PALPATION: Yes Soft to palpation Extremity: COMMON NORMALS: no pedal edema Neuro: COMMON NORMALS: patient oriented x3 Psych: COMMON NORMALS: mental status grossly normal Data : 04/14/21 05:00 04/14/21 05:00 Micro: Microbiology 04/12/21 09:47 Blood Culture - Preliminary Blood NEGATIVE TO DATE 04/12/21 09:30 Blood Culture - Preliminary Blood NEGATIVE TO DATE A&P Assessment and plan (1) Pneumonia due to COVID-19 virus: Decadron day 3 of 10 Remdesivir day 3 of 5 Perez cc neb day 3 of 14 Pulmonary toilet Budesonide twice daily CT angiogram negative for pulmonary emboli Venous ultrasound negative for DVT Incentive spirometry, Acapella Currently on Rocephin and azithromycin for second bacterial pneumonia Sputum culture. Blood cultures were drawn as well. Change alprazolam to 1 mg at noon, 2 mg at 6 PM 1 dose Lasix today Lovenox for DVT prophylaxis Full code Status: Acute (2) Acute respiratory failure with hypoxia: See above Status: Acute (3) Hypokalemia: Supplement, check magnesium Status: Acute (4) Anxiety: Continue home medications Status: Acute Additional A&P Information Full code Lovenox for DVT prophylaxis Attestations Medical Necessity Statement*: Patient requires hospitalization for COVID-19 pneumonia Coding Level of Care Code Acute Interface Analyst for [facility] Diagnoses Pneumonia due to COVID-19 virus U07.1; J12.82 Acute respiratory failure with hypoxia J96.01 Hypokalemia E87.6 Anxiety F41.9
[2021-04-14] MEDS: enoxaparin 40 mg/0.4 mL Syringe SUBCUT (18:03)
[2021-04-14] MEDS: tamsulosin 0.4 mg Capsule 0.8 MG PO (21:35)
[2021-04-14] MEDS: sennosides 8.6 mg Tablet PO (21:35)
[2021-04-15] VITALS (13 sets, daily range): BP systolic 107–130; BP diastolic 67–89; PULSE 46–98; RESP 16–21; TEMP 36.9–37; O2SAT 91–96
[2021-04-15] MEDS: ipratropium-albuterol 3 mL Neb INHALATION ×2 (02:42→20:09)
[2021-04-15 03:54] LABS: ABG PCO2 35.9 mmHg (35-45); ABG PH Result 7.51 (7.35-7.45); Arterial Blood Gas Hematocrit 43.9 % (42-52); Base Excess ABG 5.2 mmol/L (-2.0-2.0); Blood Gas Allen Test Pos; Blood Gas Sample Site Radial, left; Blood Gas Sample Type Arterial; HCO3 ABG 28.4 mmol/L (22-26); Oxygen Device HAG; PO2 ABG 60.2 mmHg (80.0-100.0)
[2021-04-15 06:16] LABS: INR 1.04 (0.8-1.2)
[2021-04-15 06:17] LABS: Basophils % 0.1 %; Eosinophils % 0.3 %; Hematocrit 40.8 % (42.0-52.0); Hemoglobin 13.7 g/dL (11.7-16.6); Lymphocytes # 0.5 10^3/uL (0.8-4.8); Lymphocytes % 3.6 %; Mean Corpuscular HGB Conc 33.6 g/dL (30.0-36.0); Mean Corpuscular Hemoglobin 30.3 pg (28.0-34.0); Mean Corpuscular Volume 90.3 fl (80-94); Monocytes # 0.8 10^3/uL (0.2-0.9); Monocytes % 5.3 %; Neutrophils # 12.92 10^3/uL (1.8-7.7); Neutrophils % 90.1 %; Nucleated Red Blood Cells % 0 %; Platelet Count 455 10^3/cmm (130-400); Red Blood Count 4.52 10^6/uL (4.1-5.3); Red Cell Distribution Width 11.6 % (12.1-15.1); White Blood Count 14.3 10^3/uL (4.0-10.0)
[2021-04-15] MEDS: remdesivir 100 MG in sodium chloride 0.9% (100 ml) 80 ML IV (06:20)
[2021-04-15] MEDS: finasteride 5 mg Tablet PO (06:20)
[2021-04-15 06:22] LABS: Lactate (Lactic Acid level) 1.5 mmol/L (0.5-2.2)
[2021-04-15 06:40] LABS: NT Pro B Type Natriuretic Pept 72 pg/mL (0-125); Procalcitonin 0.05 ng/mL (0-0.5)
[2021-04-15 06:52] LABS: Alanine Aminotransferase 25 U/L (0-41); Alkaline Phosphatase 82 IU/L (40-130); Anion Gap 19.4 (5-19); Aspartate Amino Transferase 29 U/L (0-40); Blood Urea Nitrogen 14 mg/dL (8-23); C Reactive Protein 27.1 mg/L (0.0-4.9); Calcium 8.3 mg/dL (8.5-10.5); Carbon Dioxide 21 mmol/L (22-29); Chloride 99 mmol/L (98-107); Creatine Phosphokinase 80 U/L (39-308); Globulin 3.3 g/dL (1.3-4.6); Glucose 91 mg/dL (65-115); Magnesium 2.2 mg/dL (1.7-2.3); Osmolality Calculated 282 mOsm/kg (285-295); Phosphorus 2.6 mg/dL (2.5-4.5); Potassium 3.4 mmol/L (3.5-5.1); Sodium 136 mmol/L (136-145); Total Bilirubin 0.3 mg/dL (0.15-1.2); Total Protein 6.3 g/dL (6.6-8.7)
[2021-04-15] MEDS: dexamethasone 10 mg/mL INJ 6 MG IVP (09:07)
[2021-04-15] MEDS: pantoprazole DR 40 mg Tablet PO (09:07)
[2021-04-15] MEDS: azithromycin 500 MG in sodium chloride 0.9% 250 ML 250 MG IV (09:07)
[2021-04-15] MEDS: cefTRIAXone 1,000 MG in sodium chloride 0.9% (plus) 50 ML 100 MG IV (09:08)
[2021-04-15] MEDS: FUROsemide 10 mg/mL SDV 4mL 40 MG IVP (12:57)
[2021-04-15] MEDS: potassium chloride ER 20 mEq Tablet 40 MEQ PO (12:57)
--- NOTE | 2021-04-15 13:40 | P.PN_ITS ---
Subjective Subjective: Interval history: Patient was seen this morning currently on 65% FiO2. No fevers, chills, nausea, vomiting Vitals/I&O/Wt Last Vital Signs Temp 98.5 F 04/15/21 12:00 Pulse 71 04/15/21 12:00 Resp 18 04/15/21 12:00 BP 109/70 04/15/21 12:00 Pulse Ox 94 04/15/21 12:00 04/14/21 04/15/21 04/15/21 22:59 06:59 14:59 Intake Total 300 / 560 500 / 500 Output Total 1400 / 3300 650 / 3950 1000 / 1000 Balance -1100 / -2740 -650 / -3390 -500 / -500 Physical Exam Const: COMMON NORMALS: no acute distress and patient oriented x3 Resp: COMMON NORMALS: normal respiratory effort, No retractions and No use of accessory muscles AUSCULTATION: diminished lung sounds diffuse Cardio: COMMON NORMALS: regular rate, regular rhythm, S1 normal heart sound present and S2 normal heart sound present RATE: regular rate RHYTHM: regular rhythm HEART SOUNDS: S1 normal heart sound present and S2 normal heart sound present GI: COMMON NORMALS: Normal to inspection, nondistended, normoactive bowel sounds present, Soft to palpation and non-tender PALPATION: Yes Soft to palpation Extremity: COMMON NORMALS: no pedal edema Neuro: COMMON NORMALS: patient oriented x3 Psych: COMMON NORMALS: mental status grossly normal Data : 04/15/21 05:38 04/15/21 05:38 Micro: Microbiology 04/15/21 09:20 Gram Stain - Final Sputum - Expectorated Sputum A&P Assessment and plan (1) Pneumonia due to COVID-19 virus: Currently on heated high flow, 65% FiO2 Decadron day 4 of 10 Remdesivir day 4 of 5 Actemra day 1 Stop barcitinib Pulmonary toilet Budesonide twice daily CT angiogram negative for pulmonary emboli Venous ultrasound negative for DVT Incentive spirometry, Acapella Currently on Rocephin and azithromycin for second bacterial pneumonia Sputum culture. Blood cultures were drawn as well. Change alprazolam to 1 mg at noon, 2 mg at 6 PM 1 dose Lasix today Lovenox for DVT prophylaxis Full code Status: Acute (2) Acute respiratory failure with hypoxia: See above Status: Acute (3) Hypokalemia: Supplement, check magnesium Status: Acute (4) Anxiety: Continue home medications Status: Acute Additional A&P Information Full code Lovenox for DVT prophylaxis Attestations Medical Necessity Statement*: Patient requires hospitalization for pneumonia sec to COVID-19 Coding Level of Care Code Acute Bridal Service Sales And Management for [facility] Fwd Diagnoses Pneumonia due to COVID-19 virus U07.1; J12.82 Acute respiratory failure with hypoxia J96.01 Hypokalemia E87.6 Anxiety F41.9
--- NOTE | 2021-04-15 14:00 | PM.PN ---
Vitals/I&O/Wt Last Vital Signs Temp 98.5 F 04/15/21 12:00 Pulse 71 04/15/21 12:00 Resp 18 04/15/21 12:00 BP 109/70 04/15/21 12:00 Pulse Ox 94 04/15/21 12:00 04/14/21 04/15/21 04/15/21 22:59 06:59 14:59 Intake Total 300 / 560 500 / 500 Output Total 1400 / 3300 650 / 3950 1000 / 1000 Balance -1100 / -2740 -650 / -3390 -500 / -500 Physical Exam Const: COMMON NORMALS: no acute distress and patient oriented x3 Resp: COMMON NORMALS: normal respiratory effort, No retractions and No use of accessory muscles Cardio: COMMON NORMALS: regular rate, regular rhythm, S1 normal heart sound present and S2 normal heart sound present RATE: regular rate RHYTHM: regular rhythm HEART SOUNDS: S1 normal heart sound present and S2 normal heart sound present GI: COMMON NORMALS: Normal to inspection, nondistended, normoactive bowel sounds present, Soft to palpation and non-tender PALPATION: Yes Soft to palpation Extremity: COMMON NORMALS: no pedal edema Neuro: COMMON NORMALS: patient oriented x3 Psych: COMMON NORMALS: mental status grossly normal Data : 04/15/21 05:38 04/15/21 05:38 Micro: Microbiology 04/15/21 09:20 Gram Stain - Final Sputum - Expectorated Sputum Coding Level of Care Code Acute Life Insurance Sales for Candel[facility] Ferraro
[2021-04-15] MEDS: enoxaparin 40 mg/0.4 mL Syringe SUBCUT (15:29)
[2021-04-15] MEDS: budesonide 0.5 mg/2 mL Neb INHALATION (20:09)
[2021-04-15] MEDS: sennosides 8.6 mg Tablet PO (21:14)
[2021-04-15] MEDS: tamsulosin 0.4 mg Capsule 0.8 MG PO (21:14)
[2021-04-16] VITALS (18 sets, daily range): BP systolic 120–145; BP diastolic 69–87; PULSE 57–113; RESP 16–22; TEMP 36.6–37.1; O2SAT 90–98
[2021-04-16] MEDS: ipratropium-albuterol 3 mL Neb INHALATION ×5 (02:22→21:04)
[2021-04-16 03:59] LABS: ABG PCO2 38.3 mmHg (35-45); Arterial Blood Gas Hematocrit 44.9 % (42-52); Blood Gas Allen Test Pos; Blood Gas Sample Type Arterial; HCO3 ABG 29.5 mmol/L (22-26); PO2 ABG 96.2 mmHg (80.0-100.0)
[2021-04-16 04:00] LABS: Blood Gas Sample Site Radial, right; Oxygen Device HAG
[2021-04-16] MEDS: remdesivir 100 MG in sodium chloride 0.9% (100 ml) 80 ML IV (06:03)
[2021-04-16] MEDS: finasteride 5 mg Tablet PO (06:03)
[2021-04-16 06:46] LABS: Basophils % 0.1 %; Eosinophils # 0.1 10^3/uL (0.0-0.8); Eosinophils % 0.9 %; Hematocrit 44.1 % (42.0-52.0); Lymphocytes # 0.5 10^3/uL (0.8-4.8); Lymphocytes % 5.5 %; Mean Corpuscular Hemoglobin 30.4 pg (28.0-34.0); Mean Corpuscular Volume 89.5 fl (80-94); Mean Platelet Volume 10.6 fL (7.4-10.4); Monocytes # 0.5 10^3/uL (0.2-0.9); Monocytes % 5.6 %; Neutrophils # 8.35 10^3/uL (1.8-7.7); Neutrophils % 87.3 %; Nucleated Red Blood Cells % 0 %; Platelet Count 558 10^3/cmm (130-400); Red Blood Count 4.93 10^6/uL (4.1-5.3); Red Cell Distribution Width 11.8 % (12.1-15.1); White Blood Count 9.6 10^3/uL (4.0-10.0)
[2021-04-16 06:56] LABS: Alanine Aminotransferase 29 U/L (0-41); Albumin Level 3.3 g/dL (3.5-5.2); Alkaline Phosphatase 91 IU/L (40-130); Anion Gap 20.7 (5-19); Aspartate Amino Transferase 34 U/L (0-40); Blood Urea Nitrogen 12 mg/dL (8-23); Calcium 8.6 mg/dL (8.5-10.5); Carbon Dioxide 20 mmol/L (22-29); Chloride 97 mmol/L (98-107); Globulin 3.6 g/dL (1.3-4.6); Glucose 97 mg/dL (65-115); Osmolality Calculated 278 mOsm/kg (285-295); Potassium 3.7 mmol/L (3.5-5.1); Sodium 134 mmol/L (136-145); Total Bilirubin 0.4 mg/dL (0.15-1.2); Total Protein 6.9 g/dL (6.6-8.7)
[2021-04-16 06:57] LABS: Magnesium 2.3 mg/dL (1.7-2.3); Phosphorus 2.7 mg/dL (2.5-4.5)
[2021-04-16 06:59] LABS: NT Pro B Type Natriuretic Pept 69 pg/mL (0-125); Procalcitonin 0.06 ng/mL (0-0.5)
--- NOTE | 2021-04-16 07:00 | XR_ITS ---
WS: [id number] PORTABLE CHEST HISTORY: sob COMPARISON: 04/14/2021 Mild interstitial thickening bilaterally. More focal area of opacification at the lingula. Overall no significant interval change. No consolidations. No pleural effusion or pneumothorax. Cardiac size: Normal. Mediastinum/Aorta: Normal mediastinum. No osseous abnormality seen. XR/XR chest 1V portable [id number] IMPRESSION: Continued mild interstitial thickening throughout both lungs. No significant in terval change.
[2021-04-16] MEDS: dexamethasone 10 mg/mL INJ 6 MG IVP (08:11)
[2021-04-16] MEDS: cefTRIAXone 1,000 MG in sodium chloride 0.9% (plus) 50 ML 100 MG IV (09:31)
[2021-04-16] MEDS: pantoprazole DR 40 mg Tablet PO (09:32)
[2021-04-16] MEDS: budesonide 0.5 mg/2 mL Neb INHALATION ×3 (09:36→21:04)
[2021-04-16] MEDS: azithromycin 500 MG in sodium chloride 0.9% 250 ML 250 MG IV (10:13)
--- NOTE | 2021-04-16 15:56 | PM.PN ---
Subjective Subjective: Interval history: Patient was seen this morning, he tells me he urinated a lot with the Lasix, he is feeling a lot better, no fevers overnight Vitals/I&O/Wt Last Vital Signs Temp 98.2 F 04/16/21 11:20 Pulse 85 04/16/21 15:17 Resp 18 04/16/21 15:17 BP 124/69 04/16/21 11:20 Pulse Ox 92 04/16/21 15:17 04/16/21 04/16/21 04/16/21 06:59 14:59 22:59 Intake Total 610 / 610 Output Total 200 / 3600 1500 / 1500 Balance -200 / -2280 -890 / -890 Physical Exam Const: COMMON NORMALS: no acute distress and patient oriented x3 Resp: COMMON NORMALS: normal respiratory effort, No retractions, No use of accessory muscles and clear to auscultation bilaterally AUSCULTATION: clear to auscultation bilaterally Cardio: COMMON NORMALS: regular rate, regular rhythm, S1 normal heart sound present and S2 normal heart sound present RATE: regular rate RHYTHM: regular rhythm HEART SOUNDS: S1 normal heart sound present and S2 normal heart sound present GI: COMMON NORMALS: Normal to inspection, nondistended, normoactive bowel sounds present, Soft to palpation, non-tender and No hepatosplenomegaly present PALPATION: Yes Soft to palpation and Yes No hepatosplenomegaly present Extremity: COMMON NORMALS: no pedal edema Neuro: COMMON NORMALS: patient oriented x3 Psych: COMMON NORMALS: mental status grossly normal Data : 04/16/21 06:08 04/16/21 06:08 Micro: Microbiology 04/15/21 09:20 Gram Stain - Final Sputum - Expectorated Sputum Sputum Culture - Preliminary A&P Assessment and plan (1) Pneumonia due to COVID-19 virus: Currently on heated high flow, 65% FiO2 Decadron day of Remdesivir day 5 of 5 Actemra status post 1 treatment Stop barcitinib Pulmonary toilet Budesonide twice daily CT angiogram negative for pulmonary emboli Venous ultrasound negative for DVT Incentive spirometry, Acapella Currently on Rocephin and azithromycin for second bacterial pneumonia Sputum culture. Blood cultures were drawn as well. Change alprazolam to 1 mg at noon, 2 mg at 6 PM Hold off on Lasix for today Lovenox for DVT prophylaxis Full code Status: Acute (2) Acute respiratory failure with hypoxia: See above Status: Acute (3) Anxiety: Continue home medications Status: Acute Attestations Medical Necessity Statement*: Patient requires hospitalization for pneumonia secondary COVID-19 Coding Level of Care Code Acute Watch Crystal Cutter for [facility] Diagnoses Pneumonia due to COVID-19 virus U07.1; J12.82 Acute respiratory failure with hypoxia J96.01 Anxiety F41.9
[2021-04-16] MEDS: enoxaparin 40 mg/0.4 mL Syringe SUBCUT (16:11)
[2021-04-16] MEDS: sennosides 8.6 mg Tablet PO (21:02)
[2021-04-16] MEDS: tamsulosin 0.4 mg Capsule 0.8 MG PO (21:03)
[2021-04-17] VITALS (14 sets, daily range): BP systolic 131–192; BP diastolic 72–101; PULSE 76–111; RESP 17–20; TEMP 36.4–36.8; O2SAT 86–93
[2021-04-17 03:07] LABS: Basophils % 0.1 %; Eosinophils # 0.2 10^3/uL (0.0-0.8); Eosinophils % 1.7 %; Hematocrit 41.4 % (42.0-52.0); Hemoglobin 14.1 g/dL (11.7-16.6); Lymphocytes # 0.3 10^3/uL (0.8-4.8); Lymphocytes % 2.8 %; Mean Corpuscular HGB Conc 34.1 g/dL (30.0-36.0); Mean Corpuscular Hemoglobin 30.7 pg (28.0-34.0); Mean Platelet Volume 10.5 fL (7.4-10.4); Monocytes # 0.4 10^3/uL (0.2-0.9); Neutrophils # 9.87 10^3/uL (1.8-7.7); Neutrophils % 90.8 %; Nucleated Red Blood Cells % 0 %; Platelet Count 484 10^3/cmm (130-400); Red Cell Distribution Width 11.9 % (12.1-15.1); White Blood Count 10.9 10^3/uL (4.0-10.0)
[2021-04-17 03:25] LABS: INR 1.03 (0.8-1.2)
[2021-04-17 03:30] LABS: Alanine Aminotransferase 28 U/L (0-41); Albumin Level 3.3 g/dL (3.5-5.2); Alkaline Phosphatase 90 IU/L (40-130); Anion Gap 14.9 (5-19); Aspartate Amino Transferase 32 U/L (0-40); Blood Urea Nitrogen 11 mg/dL (8-23); Calcium 8.5 mg/dL (8.5-10.5); Carbon Dioxide 26 mmol/L (22-29); Chloride 99 mmol/L (98-107); Globulin 2.7 g/dL (1.3-4.6); Glucose 93 mg/dL (65-115); Osmolality Calculated 281 mOsm/kg (285-295); Potassium 3.9 mmol/L (3.5-5.1); Sodium 136 mmol/L (136-145); Total Bilirubin 0.3 mg/dL (0.15-1.2)
[2021-04-17 03:33] LABS: C Reactive Protein 19.8 mg/L (0.0-4.9); Magnesium 2.5 mg/dL (1.7-2.3); Phosphorus 3.6 mg/dL (2.5-4.5)
[2021-04-17 03:39] LABS: NT Pro B Type Natriuretic Pept 88 pg/mL (0-125); Procalcitonin 0.05 ng/mL (0-0.5)
[2021-04-17 05:02] LABS: ABG PCO2 36.8 mmHg (35-45); Blood Gas Sample Site Radial, left; Blood Gas Sample Type Arterial
[2021-04-17] MEDS: finasteride 5 mg Tablet PO (05:13)
[2021-04-17 07:14] LABS: ABG PH Result 7.34 (7.35-7.45); Arterial Blood Gas Hematocrit 26.2 % (42-52); Base Excess ABG 5.6 mmol/L (-2.0-2.0); Blood Gas Allen Test Pos; Blood Gas Operator Identificat Anonymous; HCO3 ABG 32.4 mmol/L (22-26)
[2021-04-17] MEDS: budesonide 0.5 mg/2 mL Neb INHALATION (09:03)
[2021-04-17] MEDS: ipratropium-albuterol 3 mL Neb INHALATION ×2 (09:03→14:52)
[2021-04-17] MEDS: azithromycin 250 mg Tablet 500 MG PO (10:08)
[2021-04-17] MEDS: pantoprazole DR 40 mg Tablet PO (10:09)
[2021-04-17] MEDS: dexamethasone 10 mg/mL INJ 6 MG IVP (10:09)
[2021-04-17] MEDS: potassium chloride ER 20 mEq Tablet 40 MEQ PO (10:09)
[2021-04-17] MEDS: FUROsemide 10 mg/mL SDV 4mL 40 MG IVP (10:13)
[2021-04-17] MEDS: cefTRIAXone 1,000 MG in sodium chloride 0.9% (plus) 50 ML 100 MG IV (10:14)
--- NOTE | 2021-04-17 11:57 | PM.DCS ---
Discharge Providers Date of Admission: 04/12/21 14:26 Date of Discharge: April 17, 2021 Attending Provider at Admission: Richie Tovar MD Attending Provider at Discharge: Sorin Newman MD Primary Care Provider: Chadd Diaz DO Diagnoses at Discharge Discharge Diagnosis (1) Pneumonia due to COVID-19 virus: Status: Acute (2) Acute respiratory failure with hypoxia: Status: Acute (3) Anxiety: Status: Acute Reason for Visit Reason for Visit: LOW 02, FEVER, COUGH, WEAKNESS Hospital Course Hospital Course This is a 60-year-old male with a past medical history of anxiety, BPH, who presents to [facility] due to shortness of breath Patient was admitted to [facility] for shortness of breath secondary to COVID-19 pneumonia, with acute hypoxic respiratory failure, requiring heated high flow, he received 5 days of remdesivir, 6 days of Decadron, 2 days of baricitinib, due to increasing oxygen requirements was given 1 dose of Actemra, clinically started improving, managed with broad-spectrum antibiotic therapy for secondary bacterial pneumonia prophylaxis, remained afebrile, cultures so far have been unremarkable, his oxygen requirements decreased to 5 L, diuresed over 6 L. Patient remained afebrile, on 6 L, ambulating improved symptomatology, discharged home. In terms of his hypercoagulability prophylaxis for COVID-19, no prior history of DVT or PEs, currently no radiographic evidence of DVT or pulmonary emboli, ambulating here in the hospital, no prior surgeries. Patient was advised that he relatively has a low risk of hypercoagulability events, however low risk does not mean no risk. He should remain mobile, continue aspirin 81 mg, and if he were to have any symptoms of DVT or PE or chest pain go to the emergency room. - Continue to self isolate for at least 21 days since symptom onset -Facemask, hand wash, social distancing -Discussed with primary care provider about COVID-19 vaccination within at least 1 month -Use Advair daily as prescribed, nebulizer as needed for shortness of breath -Doxycycline -Anti-inflammatory medications vitamin C, zinc, vitamin D -Monitor for fevers, shortness of breath -Continue to be mobile as you have increased risk of hypercoagulable events such as DVT or pulmonary emboli as since hospital discharge -Does continue to mobile, take aspirin 81 mg daily -If you have calf pain or calf swelling or sudden onset shortness of breath or bloody cough or chest pain go to the emergency room -Hydrate well -Follow-up with primary care provider in 1 week Physical Exam Const: COMMON NORMALS: no acute distress and patient oriented x3 Resp: COMMON NORMALS: normal respiratory effort, No retractions, No use of accessory muscles and clear to auscultation bilaterally AUSCULTATION: clear to auscultation bilaterally Cardio: COMMON NORMALS: regular rate, regular rhythm, S1 normal heart sound present and S2 normal heart sound present RATE: regular rate RHYTHM: regular rhythm HEART SOUNDS: S1 normal heart sound present and S2 normal heart sound present GI: COMMON NORMALS: Normal to inspection, nondistended, normoactive bowel sounds present, Soft to palpation and non-tender PALPATION: Yes Soft to palpation Extremity: COMMON NORMALS: no pedal edema Neuro: COMMON NORMALS: patient oriented x3 Psych: COMMON NORMALS: mental status grossly normal Discharge Data Data Completed and Pending: Completed Studies During Hospitalization Category Date Time Status CT angio chest PE protcl [id number] Rout ine Cat Scan 04/13/21 09:42 Completed XR chest 1V epifanio ble [id number] Routine Exams 04/14/21 07:00 Completed XR chest 1V epifanio ble [id number] Routine Exams 04/16/21 07:00 Completed XR chest 1V epifanio ble [id number] Stat Exams 04/12/21 09:26 [place] [id number] Routin e Ultrasound 04/13/21 18:46 Completed Pending at discharge Category Date Time Status Arterial Blood Ga s W/O Coox AM LABS Lab 04/18/21 04:00 Ordered C Reactive Protei n AM LABS Lab 04/18/21 04:00 Ordered Complete Blood Co unt w/Auto AM LABS Lab 04/18/21 04:00 Ordered Complete Blood Co unt w/Auto AM LABS Lab 04/19/21 04:00 Ordered Comprehensive Met abolic Panel AM LA BS Lab 04/18/21 04:00 Ordered Comprehensive Met abolic Panel AM LA BS Lab 04/19/21 04:00 Ordered Magnesium AM LABS Lab 04/18/21 04:00 Ordered NT Pro B Type Reena riuretic Pept QAM Lab 04/18/21 06:00 Ordered Phosphorus AM LAB S Lab 04/18/21 04:00 Ordered Procalcitonin AM LABS Lab 04/18/21 04:00 Ordered Prothrombin Time INR AM LABS Lab 04/18/21 04:00 Ordered Sputum Culture an d Gram Stain Stat Lab 04/15/21 09:20 Results Labs from last 24 hours 04/17/21 04/17/21 04/17/21 04:45 02:15 02:15 WBC 10.9 H RBC 4.60 Hgb 14.1 Hct 41.4 L MCV 90.0 MCH 30.7 MCHC 34.1 RDW 11.9 L Plt Count 484 H MPV 10.5 H Neut % (Auto) 90.8 Lymph % (Auto) 2.8 [place] % (Auto) 4.0 Eos % (Auto) 1.7 Baso % (Auto) 0.1 Neut # (Auto) 9.87 H Lymph # (Auto) 0.3 L [place] # (Auto) 0.4 Eos # (Auto) 0.2 Baso # (Auto) 0.0 Nucleated RBC % (a uto) 0 Nucleated RBCs # 0.0 PT INR Specimen Type Arterial Sample Site Radial, left ABG pH 7.34 L ABG pCO2 36.8 ABG pO2 127.0 H ABG HCO3 32.4 H ABG Base Excess 5.6 H Keshav Test Pos Hematocrit 26.2 L O2 Delivery Device O2 Liters/Min 6.0 Billing Machine Operator ID Anonymous Sodium 136 Potassium 3.9 Chloride 99 Carbon Dioxide 26 Anion Gap 14.9 BUN 11 Creatinine 0.7 GFR Calculation 115.0 Glucose 93 Calculated Osmolal ity 281 L Calcium 8.5 Phosphorus Magnesium Total Bilirubin 0.3 AST 32 ALT 28 Alkaline Phosphata se 90 C-Reactive Protein NT-Pro-B Natriuret Pep Total Protein 6.0 L Albumin 3.3 L Globulin 2.7 Procalcitonin 04/17/21 04/17/21 04/17/21 02:15 02:15 02:15 WBC RBC Hgb Hct MCV MCH MCHC RDW Plt Count MPV Neut % (Auto) Lymph % (Auto) [place] % (Auto) Eos % (Auto) Baso % (Auto) Neut # (Auto) Lymph # (Auto) [place] # (Auto) Eos # (Auto) Baso # (Auto) Nucleated RBC % (a uto) Nucleated RBCs # PT 13.80 INR 1.03 Specimen Type Sample Site ABG pH ABG pCO2 ABG pO2 ABG HCO3 ABG Base Excess Keshav Test Hematocrit O2 Delivery Device O2 Liters/Min Billing Machine Operator ID Sodium Potassium Chloride Carbon Dioxide Anion Gap BUN Creatinine GFR Calculation Glucose Calculated Osmolal ity Calcium Phosphorus 3.6 Magnesium 2.5 H Total Bilirubin AST ALT Alkaline Phosphata se C-Reactive Protein 19.8 H NT-Pro-B Natriuret Pep 88 Total Protein Albumin Globulin Procalcitonin 0.05 Vitals: Last Vital Signs Temp 98.3 F 04/17/21 07:47 Pulse 108 H 04/17/21 09:31 Resp 18 04/17/21 09:31 BP 135/90 04/17/21 07:47 Pulse Ox 92 04/17/21 09:31 Discharge Plan Discharge Patient Disposition: Home Condition: Stable Prescriptions: New ipratropium-albuterol 0.5 mg-3 mg(2.5 mg base)/3 mL Solution For Nebulization 3 ml inhalation Q6H.RESPIRATORY PRN (Reason: shortness of breath or wheezing) 30 Days Qty: 90 RF: 0 albuterol sulfate 90 mcg/actuation HFA aerosol inhaler 1 inh inhalation Q6H PRN (Reason: shortness of breath or wheezing) Qty: 8.5 RF: 0 Advair Diskus 100-50 mcg/dose blister with device 1 inh inhalation BID Qty: 60 RF: 0 ascorbic acid (vitamin C) 1,000 mg tablet 1 g PO DAILY 15 Days Qty: 15 RF: 0 zinc 50 mg tablet 50 mg PO DAILY 15 Days Qty: 15 RF: 0 Vitamin D3 50 mcg (2,000 unit) capsule 50 mcg PO DAILY 30 Days Qty: 30 RF: 0 doxycycline hyclate 100 mg capsule 100 mg PO BID 7 Days Qty: 14 RF: 0 aspirin 81 mg capsule 81 mg PO DAILY 30 Days Qty: 30 RF: 0 Continued sildenafil 100 mg tablet 100 mg PO DAILY PRN (Reason: sexual activity) Qty: 20 RF: 12 finasteride 5 mg tablet 5 mg PO QAM RF: 0 omeprazole 20 mg capsule,delayed release(DR/EC) 20 mg PO QAM RF: 0 alprazolam [Xanax] 1 mg tablet 1 mg PO QID PRN (Reason: Anxiety) RF: 0 acetaminophen 500 mg Tablet 500 mg PO Q4H PRN (Reason: Pain) RF: 0 tamsulosin 0.4 mg capsule 0.8 mg PO BEDTIME RF: 0 Discharge Orders: Discharge Order (Routine); Ordered 04/17/21 Ordered By: Sorin Newman Other Ambulatory Orders: DME: Nebulizer with Neb Kit (Order) Location: None Selected Ordered By: Sorin Newman Referrals: Chadd Diaz DO [Primary Care Provider] - 04/26/21 10:25 am Discharge Diet: Regular and Cardiac Discharge Activity: Resume usual activity Patient Instructions: Opioid Safety Activity Restrictions/Additional Instructions: - Continue to self isolate for at least 21 days since symptom onset -Facemask, hand wash, social distancing -Discussed with primary care provider about COVID-19 vaccination within at least 1 month -Continue to be mobile as you have increased risk of hypercoagulable events such as DVT or pulmonary emboli as since hospital discharge -Does continue to mobile, take aspirin 81 mg daily -If you have calf pain or calf swelling or sudden onset shortness of breath or bloody cough or chest pain go to the emergency room -Hydrate well -Follow-up with primary care provider in 1 week Discharge Attestations Time Spent in Discharge Care*: less than 30 min Quality Metrics Clinical Quality Measures During this hospital stay, did patient experience: None Coding Level of Care Code Acute Chg FW DC note Exam Detailed Diagnoses Pneumonia due to COVID-19 virus U07.1; J12.82 Acute respiratory failure with hypoxia J96.01 Anxiety F41.9
[2021-04-17] MEDS: cloNIDine 0.1 mg Tablet PO (16:22)
== END 2021-04-17 16:40 | disposition home or self-care (01) | DRG 177 ==
LOC: ER 08:31 → MEDSURG 14:27
PROVIDERS: Admitting Provider Internal Medicine; Emergency Provider Family Medicine; PCP Internal Medicine; Visit Provider Family Medicine
DX: U07.1 COVID-19 (principal); J12.82 Pneumonia due to coronavirus disease 2019; J96.01 Acute respiratory failure with hypoxia; F41.9 Anxiety disorder, unspecified; Z87.891 Personal history of nicotine dependence; E87.6 Hypokalemia; N40.1 Benign prostatic hyperplasia with lower urinary tract symptoms; K21.9 Gastro-esophageal reflux disease without esophagitis
CPT/HCPCS: 36415; 36600; 71045; 71275; 80051; 80053; 82330; 82550; 82803; 82805; 83605; 83735; 83880; 84100; 84145; 84484; 85025; 85378; 85610; 86140; 87040; 87070; 87205; 87635; 93005; 93970; 94640; 96365; 96372; 96375; 99285; J0456; J0696; J1100; J1650; J1940; J1956; J3262; J7050; J7626; Q0144; Q9967

== ENCOUNTER 2021-04-19 00:38 | Inpatient (IN) | payer MEDICAID, SELFPAY ==
[2021-04-19] VITALS (24 sets, daily range): BP systolic 94–162; BP diastolic 69–126; PULSE 94–125; RESP 14–108; TEMP 36.8; O2SAT 82–95; BMI 25.7
--- NOTE | 2021-04-19 00:51 | W.ED.LOWEXIN ---
Documented by User: SALONI Modi 04/19/21 01:16 HPI - Extremity Injury (Lower) General: Chief Complaint: Extremity Problem,Nontraumatic Stated Complaint: LEG PAIN Time Seen by Provider: 04/19/21 00:51 History of Present Illness: HPI Narrative: 60-year-old male patient comes in today with complaints of right lower extremity pain. Patient reports pain started about 3:00 this afternoon. Patient had similar episode last night that resolved on its own. Patient has recently been diagnosed with COVID-19 and is recovering at home after being in the hospital for about a week and being discharged on the . Patient is alert oriented. Patient appears chronically ill. Patient appears in mild to moderate pain. Patient reports pain in and paresthesia, burning, to the right calf and lower leg. Review of Systems Musc: Reports: other (Lower extremity pain) PFS ED PFSH: Medical History Anxiety Back fracture BPH w urinary obs/LUTS Chronic back pain Colon polyps Erectile dysfunction GERD (gastroesophageal reflux disease) Surgical History History of surgery of head Family History Mother , 86 No problems noted. Father , 83 Cancer colon Social History Smoking and tobacco status: former smoker Alcohol intake: current Alcohol intake frequency: 0-2 Drinks per Day Marital status: Single Current occupational status: disabled History of recent travel: No Physical Exam Const: GENERAL APPEARANCE: ill appearing Resp: AUSCULTATION: diminished lung sounds Cardio: COMMON NORMALS: regular rate and regular rhythm RATE: regular rate RHYTHM: regular rhythm Extremity: RIGHT LOWER EXTREMITY: Yes foot & digits (Bluish discoloration noted to the second and third digit ) OTHER: Patient has tenderness and pain to touch to the second and third digit of the right foot, patient also has some discoloration noted to the dorsal aspect of the foot. Pulses are difficult to palpate to the dorsal pedis. Course ED course: 55, notified Dr. Diaz of patient's bluish discoloration to 2 digits of the right foot extending up into the dorsal aspect of foot and concern for arterial obstruction. He evaluated the patient. Vital Signs: Vital signs: Vital Signs Temperature 98.2 F 04/19/21 00:52 Pulse Rate 94 04/19/21 00:52 Respiratory Rate 16 04/19/21 01:33 Blood Pressure 162/126 04/19/21 00:52 Pulse Oximetry 87 L 04/19/21 00:52 MDM - Extremity Injury (Lower) Lab Data: Labs: Lab Results 04/19/21 04/19/21 04/19/21 01:10 01:10 01:10 WBC 18.2 10^3/uL H 10 ^3/uL (4.0-10.0) RBC 5.54 10^6/uL H 10 ^6/uL (4.1-5.3) Hgb 16.9 g/dL H g/dL (11.7-16.6) Hct 47.3 % % (42.0-52.0) MCV 85.4 fl fl (80-94) MCH 30.5 pg pg (28.0-34.0) MCHC 35.7 g/dL g/dL (30.0-36.0) RDW 11.7 % L % (12.1-15.1) Plt Count 426 10^3/cmm H 10 ^3/cmm (130-400) MPV 10.0 fL fL (7.4-10.4) Neut % (Auto) 93.0 % % Lymph % (Auto) 1.7 % % [place] % (Auto) 3.0 % % Eos % (Auto) 1.3 % % Baso % (Auto) 0.3 % % Neut # (Auto) 16.93 10^3/uL H 1 0^3/uL (1.8-7.7) Lymph # (Auto) 0.3 10^3/uL L 10^ 3/uL (0.8-4.8) [place] # (Auto) 0.6 10^3/uL 10^3/ uL (0.2-0.9) Eos # (Auto) 0.2 10^3/uL 10^3/ uL (0.0-0.8) Baso # (Auto) 0.1 10^3/uL 10^3/ uL (0.0-0.1) Nucleated RBC % (a uto) 0 % % Nucleated RBCs # 0.0 /100WBC /100W BC PT Cancelled INR Cancelled APTT Cancelled Sodium Cancelled Potassium Cancelled Chloride Cancelled Carbon Dioxide Cancelled Anion Gap Cancelled BUN Cancelled Creatinine Cancelled GFR Calculation Cancelled Glucose Cancelled Calculated Osmolal ity Cancelled Calcium Cancelled Total Bilirubin Cancelled AST Cancelled ALT Cancelled Alkaline Phosphata se Cancelled Total Protein Cancelled Albumin Cancelled Globulin Cancelled Discharge Plan Discharge Patient Disposition: Admitted As Inpatient Clinical Impression: Ischemic leg Condition: Stable Coding Level of Care Code ED Production Control Analyst for Chg Fwd Exam Expanded Problem Focused Documented by User: Liat Diaz MD 04/19/21 01:54 HPI - Extremity Injury (Lower) General: Chief Complaint: Extremity Problem,Nontraumatic Stated Complaint: LEG PAIN Time Seen by Provider: 04/19/21 00:51 Review of Systems Const: Denies: fever(s), chills, body aches or change in appetite Eyes: Denies: blurry vision or eye discomfort ENMT: Denies: throat pain or dental pain Card: Denies: chest pain Resp: Denies: dyspnea GI: Denies: abdominal pain, nausea, vomiting or diarrhea : Denies: dysuria Musc: Denies: neck pain or back pain Skin/Breast: Denies: rash Neuro: Denies: headache(s) Psych: Denies: depression Alex/Lymph: Denies: easy bruising All/Imm: Denies: urticaria PFSH ED PFSH: Medical History Anxiety Back fracture BPH w urinary obs/LUTS Chronic back pain Colon polyps Erectile dysfunction GERD (gastroesophageal reflux disease) Surgical History History of surgery of head Family History Mother , 86 No problems noted. Father , 83 Cancer colon Social History Smoking and tobacco status: former smoker Alcohol intake: current Alcohol intake frequency: 0-2 Drinks per Day Marital status: Single Current occupational status: disabled History of recent travel: No Physical Exam Const: COMMON NORMALS: patient oriented x3 GENERAL APPEARANCE: in distress HENMT: COMMON NORMALS: normocephalic and atraumatic HEAD & SCALP: normocephalic and atraumatic Eye: COMMON NORMALS: Equal, round and reactive pupils present and EOMs intact bilaterally PUPIL: Yes Equal, round and reactive pupils present Neck/C-Spine: COMMON NORMALS: full ROM and supple Chest: COMMONS NORMALS: normal inspection of the chest and normal palpation of entire chest wall Resp: COMMON NORMALS: normal respiratory effort, No retractions, No use of accessory muscles and clear to auscultation bilaterally AUSCULTATION: clear to auscultation bilaterally Cardio: COMMON NORMALS: regular rate, regular rhythm and No murmurs present (Cardio) RATE: regular rate RHYTHM: regular rhythm GI: COMMON NORMALS: Normal to inspection, nondistended, normoactive bowel sounds present, Soft to palpation, non-tender and no masses PALPATION: Yes Soft to palpation Extremity: COMMON NORMALS: full ROM NARRATIVE EXTREMITY EXAM: Right foot is cold to touch with pain Neuro: COMMON NORMALS: patient oriented x3, moves all extremities and no focal motor deficits Psych: COMMON NORMALS: mental status grossly normal, Normal thought process present and cooperative THOUGHT PROCESS: Normal thought process present Skin: COMMON NORMALS: no rashes or lesions noted and no wounds GENERAL SKIN EXAM: no rashes or lesions noted Course Vital Signs: Vital signs: Vital Signs Temperature 98.2 F 04/19/21 00:52 Pulse Rate 94 04/19/21 00:52 Respiratory Rate 16 04/19/21 01:33 Blood Pressure 162/126 04/19/21 00:52 Pulse Oximetry 87 L 04/19/21 00:52 MDM - Extremity Injury (Lower) MDM Narrative: Medical decision making narrative: Patient presents with acute ischemic limb to the right leg patient's right foot is cold I did a bedside ultrasound did not see any flow starting at the popliteal artery got a formal ultrasound that showed a clot in the popliteal artery with no flow distal to that. I spoke to Dr. Hannah patient started on heparin is going to be taken to the Photostat Operator for intervention Lab Data: Labs: Lab Results 04/19/21 04/19/21 04/19/21 01:10 01:10 01:10 WBC 18.2 10^3/uL H 10 ^3/uL (4.0-10.0) RBC 5.54 10^6/uL H 10 ^6/uL (4.1-5.3) Hgb 16.9 g/dL H g/dL (11.7-16.6) Hct 47.3 % % (42.0-52.0) MCV 85.4 fl fl (80-94) MCH 30.5 pg pg (28.0-34.0) MCHC 35.7 g/dL g/dL (30.0-36.0) RDW 11.7 % L % (12.1-15.1) Plt Count 426 10^3/cmm H 10 ^3/cmm (130-400) MPV 10.0 fL fL (7.4-10.4) Neut % (Auto) 93.0 % % Lymph % (Auto) 1.7 % % [place] % (Auto) 3.0 % % Eos % (Auto) 1.3 % % Baso % (Auto) 0.3 % % Neut # (Auto) 16.93 10^3/uL H 1 0^3/uL (1.8-7.7) Lymph # (Auto) 0.3 10^3/uL L 10^ 3/uL (0.8-4.8) [place] # (Auto) 0.6 10^3/uL 10^3/ uL (0.2-0.9) Eos # (Auto) 0.2 10^3/uL 10^3/ uL (0.0-0.8) Baso # (Auto) 0.1 10^3/uL 10^3/ uL (0.0-0.1) Nucleated RBC % (a uto) 0 % % Nucleated RBCs # 0.0 /100WBC /100W BC PT Cancelled INR Cancelled APTT Cancelled Sodium Cancelled Potassium Cancelled Chloride Cancelled Carbon Dioxide Cancelled Anion Gap Cancelled BUN Cancelled Creatinine Cancelled GFR Calculation Cancelled Glucose Cancelled Calculated Osmolal ity Cancelled Calcium Cancelled Total Bilirubin Cancelled AST Cancelled ALT Cancelled Alkaline Phosphata se Cancelled Total Protein Cancelled Albumin Cancelled Globulin Cancelled Critical Care Time Critical Care Time: Critical Care Time: Yes Total Critical Care Time: 35 Attestation: The high probability of a clinically significant, sudden or life threatening deterioration of the patient's circulatory system(s) required my full and direct attention, intervention and personal management. The critical care time is as shown. This time is in addition to time spent performing any reported procedures but includes the following: [x] Data and vital sign review and interpretation [x] Patient assessment, examination and intervention [x] Documentation [x] Medication orders and management Discharge Plan Discharge Patient Disposition: Admitted As Inpatient Clinical Impression: Ischemic leg Condition: Stable Coding Level of Care Code ED Production Control Analyst for Candelaria Fwjosue Exam Expanded Problem Focused
--- NOTE | 2021-04-19 00:55 | USR_ITS ---
PROCEDURE INFORMATION: Exam: US Duplex Right Lower Extremity Arteries Or Arterial Bypass Grafts Exam date and time: 04/19/2021 12:55 AM Age: 60 years old Clinical indication: Pain; Leg, lower; Right; Additional info: Cold RT lower leg TECHNIQUE: Imaging protocol: Right Real-time duplex scan of the arteries or arterial bypass grafts of the right lower extremity with 2-D guerra scale, color Doppler flow and spectral waveform analysis. Images documented and saved. COMPARISON: [place] [id number] 04/13/2021 7:07 AM FINDINGS: Right external iliac artery: No occlusion or significant stenosis. Normal triphasic waveform. PSV 51.3, 55.9 and 48.0 cm/s for the proximal, mid and distal external iliac artery, respectively. Right common femoral artery: No occlusion or significant stenosis. Normal triphasic waveform. PSV 55.2 cm/s. No pseudoaneurysm in the inguinal region. Right superficial femoral artery: No occlusion or significant stenosis. Normal triphasic waveform. PSV 53.9, 50.6 and 50.6 cm/s for the proximal, mid and distal SFA, respectively. Right popliteal artery: There is absence of flow within the right popliteal artery compatible with occlusion. Right calf/foot arteries: Absence of flow and occlusion in the visualized arteries. Soft tissues: No hematoma or collection. 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
[2021-04-19 01:16] LABS: Basophils # 0.1 10^3/uL (0.0-0.1); Basophils % 0.3 %; Eosinophils # 0.2 10^3/uL (0.0-0.8); Eosinophils % 1.3 %; Hematocrit 47.3 % (42.0-52.0); Hemoglobin 16.9 g/dL (11.7-16.6); Lymphocytes # 0.3 10^3/uL (0.8-4.8); Lymphocytes % 1.7 %; Mean Corpuscular HGB Conc 35.7 g/dL (30.0-36.0); Mean Corpuscular Hemoglobin 30.5 pg (28.0-34.0); Mean Corpuscular Volume 85.4 fl (80-94); Monocytes # 0.6 10^3/uL (0.2-0.9); Neutrophils # 16.93 10^3/uL (1.8-7.7); Nucleated Red Blood Cells % 0 %; Platelet Count 426 10^3/cmm (130-400); Red Blood Count 5.54 10^6/uL (4.1-5.3); Red Cell Distribution Width 11.7 % (12.1-15.1); White Blood Count 18.2 10^3/uL (4.0-10.0)
[2021-04-19] MEDS: morphine 4 mg/mL SDV 1 mL IVP (01:17)
--- NOTE | 2021-04-19 01:28 | ECG_ITS ---
[facility] Test Date: 2021-04-19 Pat Name: Glenn Barron Department: Room: Gender: Male Mailroom Courier: : 1960 Requested By: Liat Diaz Order Number: [id number] Jo MD: Beto Hernandez M.D. Measurements Intervals Steward Rate: 94 P: 48 NJ: 149 QRS: 3 QRSD: 102 T: 23 QT: 364 QTc: 457 Interpretive Statements SINUS RHYTHM INTERPRETATION BASED ON A DEFAULT AGE OF 40 YEARS Compared to ECG 04/13/2021 15:16:23 No significant changes Electronically Signed On 04-20-2021 14:06:33 FEEDER CATCHER by Beto Hernandez M.D. [email or web address]. [email or web address] memorial hospitalCour Pharmaceuticals Developmentcleveland clinic foundationCartoon Doll Emporium/store/[id number]
[2021-04-19] MEDS: HYDROmorphone 1 mg/mL INJ 1 mL IVP (01:33)
[2021-04-19] MEDS: ondansetron 2 mg/ML SDV 2 mL 4 MG IVP (01:36)
[2021-04-19] MEDS: heparin 5,000 unit/mL INJ 1 mL 4000 UNIT IVP (01:42)
[2021-04-19] MEDS: heparin drip 25,000 UNIT/500 ML PREMIX 20.68 UNIT IV (01:43)
[2021-04-19 02:14] LABS: INR 1.06 (0.8-1.2)
[2021-04-19 02:15] LABS: Partial Thromboplastin Time 23.2 SECONDS (23.9-36.7)
--- NOTE | 2021-04-19 02:20 | XACV_ITS ---
Ht: 183 cm Wt: 86 kg BSA: 2.10 m2 Gender: Male : 1960 Exam Type: Invasive Peripheral Vascular Procedure(s): Procedure Description: Peripheral Cath Diagnostic Procedure Procedure Description: Abdominal aortic angiography Procedure Description: Iliac arterial aortic angiography Procedure Description: Lower extremities' angiography Procedure Description: Peripheral vascular Intervention Procedure Description: PV Balloon Procedure Description: PV Thrombectomy Exam Priority: Routine Conclusions 60-year-old male who contracted COVID 20 days ago was admitted to the hospital with pneumonia on the of this month discharged on the past medical history significant for [id number] of tobacco abuse quit 20 years ago COPD peripheral arterial disease with claudication of right leg 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 His symptoms started almost 8 to 10 hours ago. Patient was taken to [facility] from the ER. Left common femoral approach was adopted he was noted to have thrombotically occluded distal abdominal aorta subtotally occluded right common and partially occluded left common iliac arteries. No flow was observed below mid right SFA, penumbra CAT 8 catheter was used for thrombectomy using multiple runs of left common iliac to distal abdominal aorta, in right common iliac right mid to distal SFA right popliteal artery and tibioperoneal trunk. Multiple balloon angioplasty of right mid to distal SFA, popliteal artery and tibioperoneal trunk was performed. Multiple balloon angioplasty of proximal to mid and distal anterior tibial and posterior tibial was performed . We were able to establish flow into the right popliteal vessel. After that selective injection showed thrombus in the distal tibial peroneal trunk, i then cross into anterior and posterior tibial vessel multiple runs of pneumbra were performed in the tibioperoneal trunk. Balloon angioplasty of both anterior posterior tibial vessel using 3.0 Strum x200 balloon was used. Selective injection in the distal tibial vessel showed patent vessel. Multiple nitro injection and aggrastat was given. Peripheral runoff later confirmed sluggish flow in distal RIGHT SFA popliteal and tibioperoneal trunk. A very sluggish flow was noted in the proximal part of anterior and posterior tibial vessels. Since color of right leg improved along with the temperature of the leg which started warming, forefoot and toes remains cold though we concluded the procedure. Pulses in the foot were not dopplerable popliteal pulse was palpable. Patient was kept on IV heparin , we are consulting vascular surgery outside our facility and Dr Julien our CT surgeon if they can further help the patient. Subselective injection of left common femoral artery was performed which showed no further thrombus noted in the left common iliac to left SFA. Good flow was noted in left leg. . null was treated with Balloon. null was treated with Balloon. null was treated with Balloon. null was treated with Balloon. Recommendations 1-Return to inpatient for close monitoring and routine cath care 2-Risk factor modification for secondary prevention 3-Statin and aspirin 81 mg life--long, if tolerated 4-Patient will continue anticoagulation and antiplatelet therapy 5-Continue optimal medical management, immediate referral to vascular surgery for open intervention of right below the knee vessels and perhaps release of development of compartment syndrome in case of reperfusion injury 6-Follow up with Dr. Hannah in four weeks and your primary care in 10 days. Hemodynamic Data Phase:Rest AO : 168.0 / 83.0 ( 107.0 ) @ 12:03:26 AM 173.0 / 83.0 ( 112.0 ) @ 12:03:26 AM 145.0 / 77.0 ( 101.0 ) @ 12:03:26 AM 132.0 / 70.0 ( 93.0 ) @ 12:03:26 AM 127.0 / 70.0 ( 89.0 ) @ 12:03:26 AM 125.0 / 69.0 ( 88.0 ) @ 12:03:26 AM 135.0 / 62.0 ( 90.0 ) @ 12:03:26 AM 106.0 / 72.0 ( 87.0 ) @ 12:03:26 AM 129.0 / 72.0 ( 91.0 ) @ 12:03:26 AM 146.0 / 66.0 ( 86.0 ) @ 12:03:26 AM 131.0 / 64.0 ( 82.0 ) @ 12:03:26 AM 91.0 / 55.0 ( 67.0 ) @ 12:03:26 AM 73.0 / 47.0 ( 56.0 ) @ 12:03:26 AM Access Site Site: Left Femoral artery Sheath Size: 6 Fr Hemost... Method: Perclose ([employer]) Hemost... Success: Successful Procedure Details Findings Procedure Consent Obtained. Pre-Procedure Time Out. Identified patient by full name and date of as verbalized by the patient/guarantor. Does the consent match the physician's order: Yes. Accurate & Complete Informed Consent: Yes. Inpatient/Outpatient History & Physical on Chart: Yes. If H&P is completed, is and addenduem needed: N/A. Visualize and Verify Site with Patient/Guarantor: N/A. Relevant Radiology Images available: N/A Emergent. The risks, benefits, and alternatives of sedation and/or procedure were discussed by physician. The patient agrees to continue. Procedure started. Correct patient, site and procedure confirmed by cath team. Current diagnosis: Critical life threatening lower limb ischemia, right. PERRLA. 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 Lungs clear x 5 lobes. IV Site on Arrival: 18 gauge in the left forearm. IV Fluids: 0.9% NaCl at KVO. 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 Pre Procedural Pulses: right dorsalis pedis was Absent. Pre Procedural Pulses: right posterior tibial was Absent. Oxygen started at 2liters/min via nasal canula. bilateral groins was prepped with chloroprep then draped in the usual sterile fashion. Baseline sample Acquired. HR: 91 BPM. Physician notified. Patient's family unavailable. Equipment: 6F - Femoral. Cardiac Cath Pack. ACIST Manifold Kit Model BT 2000. Heparinized Saline (2 units/mL), 1000 mL bag. Kit, Micropuncture. Physician arrived. Physician scrubbed in. Immediate Pre-Procedure Time Out. Correct Patient: Yes; Correct Procedure: Yes; Correct Site: Yes; Correct Patient Position: Yes; Correct Supplies: Yes; Dried Flammable Prep: Yes; Blood Products Available: N/A;. Lidocaine 1% infiltrated to the left groin. Arterial access obtained with micropuncture set. A 5Fr UF catheter in over the wire. Abdominal aortogram performed in AP @ 0 mL/sec for a total of 30 mL. Glidewire in. UF Catheter removed over the glide wire. ACT drawn. Results 156 seconds. Therapeutic limits - pre-heparin administration 90-150 seconds and monitoring heparin during a vascular procedure >250 seconds. Sheath upsized to a 8 Fr. [employer] System Lightning 7 Aspiration Catheter in over the glidewire and advanced to the thrombus in the left common iliac. Thrombectomy performed of the left Common Iliac. Aspiration catheter out. A 5Fr UF catheter out over wire. Glidewire out. hand injection performed. Aspiration catheter in over the glidewire. Glidewire out. Thrombectomy performed of the left common iliac. Aspiration catheter out over the glidewire. A 5Fr UF catheter in over the glide wire. Glidewire out. Abdominal aortogram performed in AP @ 10 mL/sec for a total of 20 mL. Glidewire in. ACT drawn. Results 243 seconds. Therapeutic limits - pre-heparin administration 90-150 seconds and monitoring heparin during a vascular procedure >250 seconds. Glidewire advanced down the right SFA. A 5Fr RIM catheter in over the glidewire. UF Catheter removed over the glide wire. 8fr Terumo sheath advanced over the horn into the right leg. RIM Catheter removed over the glide wire. Seeker support catheter in over the glidewire and advanced down to the right PT. Seeker support catheter out, aspiration catheter in. Throbectomy performed of the right popliteal. Glidewire out. Glidewire in. Aspiration catheter out over the glidewire. Seeker support catheter in over the gliderwire. Glidewire out. Hand injection performed through the seeker of he right PT. Hand injection performed through the seeker of he right PT. Runthrough wire in through the seeker support catheter. Seeker support catheter out. Inflation number : 1 A AB ARMADA 14 OTW [id number] was prepped and advanced across the Posterior Tibial, Right , then inflated to 4 JOYCE for 0:27 seconds. Inflation number: 2 The AB ARMADA 14 OTW [id number] was reinflated across the Posterior Tibial, Right, to 10 JOYCE for 0:53 seconds. Inflation number: 3 The AB ARMADA 14 OTW [id number] was reinflated across the Posterior Tibial, Right, to 10 JOYCE for 1:06 seconds. Inflation number: 4 The AB ARMADA 14 OTW [id number] was reinflated across the Posterior Tibial, Right, to 12 JOYCE for 1:08 seconds. Balloon out. ACT drawn. Results 264 seconds. Therapeutic limits - pre-heparin administration 90-150 seconds and monitoring heparin during a vascular procedure >250 seconds. Runthrough wire out. Hand injection performed through the Seeker of the right popliteal. Seeker support catheter in. Runthrough wire in. Runthrough wire out. Hand injection performed through the Seeker of the right popliteal. Hand injection performed through the Seeker of the right poplitealin DSA. Glidewire in through the seeker support catheter and advanced to the AT. Glidewire out. Hand injection performed through the Seeker of the right AT. Runthrough wire in. Seeker support out. Inflation number : 1 A AB ARMADA 14 OTW [id number] was prepped and advanced across the Anterior Tibial, Right , then inflated to 10 JOYCE for 1:16 seconds. Inflation number: 2 The AB ARMADA 14 OTW [id number] was reinflated across the Anterior Tibial, Right, to 14 JOYCE for 0:17 seconds. Balloon out. Seeker support catheter in over the Runthrough wire. Runthrough wire out. Glidewire in. Inflation number : 1 A AB ARMADA 35 OTW [id number] was prepped and advanced across the Popliteal, Right , then inflated to 4 JOYCE for 1:12 seconds. Inflation number: 1 The AB ARMADA 35 OTW [id number] was reinflated across the Superficial Femoral, Right, to 10 JOYCE for 1:28 seconds. Inflation number: 2 The AB ARMADA 35 OTW [id number] was reinflated across the Superficial Femoral, Right, to 10 JOYCE for 1:45 seconds. Balloon out. Foooooo System Cat 8 Aspiration Catheter in over the glidewire and advanced to the thrombus in the distal SFA. Thrombectomy performed. Aspiration catheter out over the glidewire. Right common femoral selected and arteriogram with runoff performed @ 10 mL/sec for a total of 30 mL through the sheath. Glidewire in. Thrombectomy performedof the TP trunk. Thrombectomy catheter out. Glidewire out. Right common femoral selected and arteriogram with runoff performed @ 10 mL/sec for a total of 20 mL. Sheath upsized to a 8 Fr. A 5 tajik Angled Pig catheter in over the glidewire wire. Aortogram performed in AP @ 10 mL/second for a total of 30 mL. ACT drawn. Results 289 seconds. Therapeutic limits - pre-heparin administration 90-150 seconds and monitoring heparin during a vascular procedure >250 seconds. A Left femoral angiogram was performed to determine safe placement of closure device. Catheter removed over the glide wire. Perclose placed without complications. No signs or symptoms of hematoma noted. Sterile dressing applied per usual sterile fashion. LOT #[id number]. Exp.2023-01-27. Stat labs drawn for CBC and PTT/PT/INR and personally walked to the lab by this nurse. PERRLA. 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 No VTE prophylaxis required. Medication's Wasted: Lidocaine 1% = 10 mL. Medication's Wasted: Nitro = 49.6 mg. Medication's Wasted: Aggrastat = 50 mL. Total IV fluids: 400 mL. A Perclose (Mcpherson) was successful obtaining hemostatsis at the Left Femoral artery insertion site. Complications: none. Post-op diagnosis: Thrombectomyof the distal abdominalaorta, bilateral common iliac, mid-distal SFA, TP trunk, at, and PT with ballooning of the distal SFA, TP trunk, AT, PT, and Popliteal of the right lower extremity. Estimated blood loss: 600ml. Post Procedure: Pulses reassessed and unchanged. Responsiveness - Normal response to verbal stimuli; alert and oriented, PERRLA. Airway - Unaffected, no intervention required; spontaneous ventilation. Circulation: W/N/L, pulses unchanged. Nausea/Vomiting: No. Procedure completed. Patient transferred by bed to 1st floor. Vital chart was stopped. Procedure Medications Start: 2:49 AM Stop: 2:49 AM Medication: Versed Amount: 1 mg Route: I.V. Start: 2:49 AM Stop: 2:49 AM Medication: Fentanyl Amount: 25 mcg Route: I.V. Start: 3:00 AM Stop: 3:00 AM Medication: Versed Amount: 0.5 mg Route: I.V. Start: 3:04 AM Stop: 3:04 AM Medication: Heparin Amount: 11437 units Route: I.V. Start: 3:16 AM Stop: 3:16 AM Medication: Versed Amount: 0.5 mg Route: I.V. Start: 3:17 AM Stop: 3:17 AM Medication: Fentanyl Amount: 25 mcg Route: I.V. Start: 3:37 AM Stop: 3:37 AM Medication: Heparin Amount: 5000 units Route: I.V. Start: 3:38 AM Stop: 3:38 AM Medication: Versed Amount: 0.5 mg Route: I.V. Start: 3:46 AM Stop: 3:46 AM Medication: Versed Amount: 0.5 mg Route: I.V. Start: 3:46 AM Stop: 3:46 AM Medication: Fentanyl Amount: 25 mcg Route: I.V. Start: 4:18 AM Stop: 4:18 AM Medication: Heparin Amount: 4000 units Route: I.V. Start: 4:42 AM Stop: 4:42 AM Medication: Aggrastat 12.5 mg/250 mL Amount: 43 ml Route: I.A. Start: 4:44 AM Stop: 4:44 AM Medication: Nitrogylcerin Amount: 400 mcg Route: I.A. Start: 3:46 AM Stop: 3:46 AM Medication: Versed Amount: 0.5 mg Route: I.V. I, the attending physician, have reviewed and verified all procedure medications. Yes, all medications given per verbal order History/Risk Factors Hypertension: No Dyslipidemia: No Peripheral Arterial Disease (PAD): No Obesity: No Renal Disease: No Tobacco Use: Former Prior Interventions PCI: No CABG: Yes Valve Surgery: No Report Signatures Finalized by Abner Hannah MD on 05/05/2021 05:42 PM
[2021-04-19 02:23] LABS: Alanine Aminotransferase 115 U/L (0-41); Albumin Level 3.4 g/dL (3.5-5.2); Alkaline Phosphatase 93 IU/L (40-130); Anion Gap 18.4 (5-19); Aspartate Amino Transferase 253 U/L (0-40); Blood Urea Nitrogen 9 mg/dL (8-23); Carbon Dioxide 21 mmol/L (22-29); Chloride 90 mmol/L (98-107); Globulin 2.8 g/dL (1.3-4.6); Glomerular Filtration Rate 137.4 mL/min (90-130); Glucose 120 mg/dL (65-115); Osmolality Calculated 260 mOsm/kg (285-295); Potassium 4.4 mmol/L (3.5-5.1); Sodium 125 mmol/L (136-145); Total Bilirubin 0.6 mg/dL (0.15-1.2); Total Protein 6.2 g/dL (6.6-8.7)
--- NOTE | 2021-04-19 02:23 | P.HPUD_ITS ---
Surgery/Procedure H&P Update DATE OF PROCEDURE: April 19, 2021 DATE H&P PERFORMED: 04/19/21 H&P UPDATE INFORMATION: I have reviewed H&P completed within last 30 days and I have examined patient prior to procedure PREOP DIAGNOSIS: Acute limb ischemia PHYSICAL EXAM: alert, oriented x 3 and clear to auscultation bilaterally (Decreased breath sound) AIRWAY EVAL/ANESTHESIA PLAN: ASA II and Risks, benefits & alternatives of sedation and/or procedure discussed ADDITIONAL INFORMATION: Patient has been explained all risk benefit and alternative for the procedure. He understand risk for contrast-induced nephropathy major minor bleed vascular surgery vascular complication stroke complication leading to urgent emergent vascular surgery limb loss embolization, he has been explained risk benefit and FDA warning regarding drug- coated balloon. He is a candidate for DAPT he would like to proceed with it
--- NOTE | 2021-04-19 02:23 | P.CONIM_ITS ---
Providers/Reason For Consult Consulting Physician/Specialty*: Interventional cardiology Reason for Consult*: Acute limb ischemia /Limb salvage Attending Physician: Abner Hannah MD Primary Care Provider: Chadd Diaz DO History of Present Illness History of Present Illness Glenn Barron is a 60 year old male past medical history significant for recent COVID-pneumonia his symptoms started almost near first march, he was admitted to the hospital on the with COVID-pneumonia hypoxia he was treated and discharged out of the hospital yesterday. According the patient for the last few months he has been struggling with cramps/claudication of the right leg however since yesterday he is right leg started hurting more he did not pay much attention but tonight it started hurting pretty bad to the extent he cannot even move his right foot therefore he decided to come to the ER. Bedside vascular ultrasound determined no flow beyond popliteal. Due to acute limb ischemia we have been asked to see the patient. I saw the patient in the ER, he continues to have resting pain of right leg and foot, while half of the right leg below the calf is cold, we therefore will proceed with urgent peripheral angiogram thrombectomy and HUMANE OFFICER if necessary patient has been explained all risk benefit and alternative for the procedure. He would like to proceed with it. Review of Systems Const: Denies: fever(s), chills, body aches or change in appetite Eyes: Denies: blurry vision or eye discomfort ENMT: Denies: throat pain or dental pain Card: Denies: chest pain Resp: Denies: dyspnea GI: Denies: abdominal pain, nausea, vomiting or diarrhea : Denies: dysuria Musc: Reports: other (Lower extremity pain); Denies: neck pain or back pain Skin/Breast: Denies: rash Neuro: Denies: headache(s) Psych: Denies: depression Alex/Lymph: Denies: easy bruising All/Imm: Denies: urticaria Medications/Allergies Home Medications Medication Instructions Recorded Confirmed Last Taken Type alprazolam 1 mg tablet 1 mg PO QID PRN 07/13/19 04/12/21 Unknown History finasteride 5 mg tablet 5 mg PO QAM 07/13/19 04/12/21 Unknown History omeprazole 20 mg capsule,delayed 20 mg PO QAM 07/13/19 04/12/21 Unknown History release sildenafil 100 mg tablet 100 mg PO DAILY PRN #20 tab 03/07/21 04/12/21 Unknown Rx acetaminophen 500 mg PO Q4H PRN 04/12/21 04/12/21 04/12/21 05:30 History tamsulosin 0.8 mg PO BEDTIME 04/12/21 04/12/21 Unknown History albuterol sulfate 1 inh INHALATION Q6H PRN #8.5 g 04/17/21 Unknown Rx ascorbic acid (vitamin C) 1 g PO DAILY 15 Days #15 tab 04/17/21 Unknown Rx aspirin 81 mg PO DAILY 30 Days #30 cap 04/17/21 Unknown Rx cholecalciferol (vitamin D3) 50 mcg PO DAILY 30 Days #30 cap 04/17/21 Unknown Rx [Vitamin D3] clonidine HCl 0.1 mg PO BID 30 Days #60 tab 04/17/21 Unknown Rx doxycycline hyclate 100 mg PO BID 7 Days #14 cap 04/17/21 Unknown Rx fluticasone propion-salmeterol 1 inh INHALATION BID #60 ea 04/17/21 Unknown Rx [Advair Diskus] ipratropium-albuterol 3 ml INHALATION Q6H.RESPIRATORY 04/17/21 Unknown Rx PRN 30 Days #90 ml zinc 50 mg PO DAILY 15 Days #15 tab 04/17/21 Unknown Rx Allergies Allergy/AdvReac Type Severity Reaction Status Date / Time No Known Allergies Allergy Verified 04/12/21 09:52 Current Medications Generic Name Dose Route Start Last Admin Trade Name Freq PRN Reason Stop Dose Admin Heparin Sodium/Sodium Chloride 25,000 unit in 500 mls @ 20.684 mls/hr 04/19/21 01:45 04/19/21 01:43 Heparin Drip IV 12 unit/kg/hr .Q24H RASHMI 20.68 mls/hr Administration 12 UNIT/KG/HR PFSH Acute PFSH: Medical History Anxiety Back fracture BPH w urinary obs/LUTS Chronic back pain Colon polyps Erectile dysfunction GERD (gastroesophageal reflux disease) Surgical History History of surgery of head Family History Mother , 86 No problems noted. Father , 83 Cancer colon Social History Smoking and tobacco status: former smoker Alcohol intake: current Alcohol intake frequency: 0-2 Drinks per Day Marital status: Single Current occupational status: disabled History of recent travel: No Vitals/I&O/Wt Last Vital Signs Temp 98.2 F 04/19/21 00:52 Pulse 94 04/19/21 00:52 Resp 16 04/19/21 01:33 BP 162/126 04/19/21 00:52 Pulse Ox 87 L 04/19/21 00:52 Weight last 48 hrs Weight 190 lb Physical Exam Narrative: EXAM NARRATIVE: GENERAL: Patient is alert, awake and oriented x3. He is wearing oxygen NECK: No jugular vein distension. HEENT: No cyanosis. No icterus. No pallor. HEART: Regular S1 and S2. No murmur, rub or gallop. LUNGS: Clear to auscultate bilaterally. ABDOMEN: Soft, nontender and nondistended. Positive bowel sounds. No guarding, rebound or tenderness. CENTRAL NERVOUS SYSTEM: Grossly nonfocal. EXTREMITIES: Lower extremities without edema bilaterally. Pulses not palpable in the right leg right foot and below calf stays cold, he can feel but movement of the toe and foot is very painful. A&P Assessment and plan (1) Ischemic leg: Patient has acute limb threatening ischemic of the leg. We will proceed with urgent peripheral angiogram and intervention if necessary. Further plan will be advised as per progress of the patient. Patient recently had COVID- pneumonia he was discharged from the hospital yesterday though his symptoms started around 30 March we will take all necessary precautions with our staff and the patient. Status: Acute Consult Attestations Medical Necessity Statement: I am expecting his stay to cross more than 2 midnight Coding Level of Care Code New Pt Acute Mobility Developer for Chg Fwd Patient Type New History Detailed Exam Detailed Medical Decision Making High Complexity Diagnoses Ischemic leg I99.8
[2021-04-19 02:25] LABS: Creatinine Clr Calc Pharmacy 150.0615
--- NOTE | 2021-04-19 02:46 | P.HP_ITS ---
Providers/Chief Complaint Primary Care Provider: Chadd Diaz DO Chief Complaint: LEG PAIN History of Present Illness Glenn Barron is a 60 year old male with past medical history of BPH, hypertension, recently discharged after being managed for COVID-19 pneumonia, came in today with chief complaint of right lower extremity pain started around 3 p.m. this afternoon, patient had similar episode of right lower extremity pain last night which spontaneously resolved on its own. Upon arrival in the ER he was worked up for above mentioned complaint. Pertinent imaging studies arterial duplex LE RT: occlusion of the right popliteal artery with absence of flow distally. Started on heparin drip in the ER, cardiology was consulted. Review of Systems Const: Denies: fever(s), chills, body aches, change in appetite or diaphoresis Card: Denies: palpitations, edema, swelling of feet/ankles, dyspnea on exertion, orthopnea or leg pain with exertion Resp: Denies: dyspnea, productive cough, wheezing or pain on inspiration GI: Denies: abdominal pain, nausea, vomiting, diarrhea or constipation : Denies: flank pain or difficulty urinating Musc: Denies: back pain, extremity pain or extremity swelling Neuro: Denies: headache(s), difficulty walking or confusion Medications/Allergies Home Medications Medication Instructions Recorded Confirmed Last Taken Type alprazolam 1 mg tablet See Rx Instructions .ROUTE .COMPLEX 07/13/19 04/19/21 Unknown History finasteride 5 mg tablet 5 mg PO QAM 07/13/19 04/19/21 Unknown History omeprazole 20 mg capsule,delayed 20 mg PO QAM 07/13/19 04/19/21 Unknown History release sildenafil 100 mg tablet 100 mg PO DAILY PRN #20 tab 03/07/21 04/19/21 Unknown Rx acetaminophen 500 mg PO Q4H PRN 04/12/21 04/19/21 04/12/21 05:30 History tamsulosin 0.8 mg PO BEDTIME 04/12/21 04/19/21 Unknown History albuterol sulfate 1 inh INHALATION Q6H PRN #8.5 g 04/17/21 04/19/21 Unknown Rx ascorbic acid (vitamin C) 1 g PO DAILY 15 Days #15 tab 04/17/21 04/19/21 Unknown Rx aspirin 81 mg PO DAILY 30 Days #30 cap 04/17/21 04/19/21 Unknown Rx cholecalciferol (vitamin D3) 50 mcg PO DAILY 30 Days #30 cap 04/17/21 04/19/21 Unknown Rx [Vitamin D3] clonidine HCl 0.1 mg PO BID 30 Days #60 tab 04/17/21 04/19/21 Unknown Rx doxycycline hyclate 100 mg PO BID 7 Days #14 cap 04/17/21 04/19/21 Unknown Rx fluticasone propion-salmeterol 1 inh INHALATION BID #60 ea 04/17/21 04/19/21 Unknown Rx [Advair Diskus] ipratropium-albuterol 3 ml INHALATION Q6H.RESPIRATORY 04/17/21 04/19/21 Unknown Rx PRN 30 Days #90 ml zinc 50 mg PO DAILY 15 Days #15 tab 04/17/21 04/19/21 Unknown Rx Allergies Allergy/AdvReac Type Severity Reaction Status Date / Time No Known Allergies Allergy Verified 04/12/21 09:52 PFSH Acute PFSH: Medical History Anxiety Back fracture BPH w urinary obs/LUTS Chronic back pain Colon polyps Erectile dysfunction GERD (gastroesophageal reflux disease) Surgical History History of surgery of head Family History Mother , 86 No problems noted. Father , 83 Cancer colon Social History Smoking and tobacco status: former smoker Alcohol intake: current Alcohol intake frequency: 0-2 Drinks per Day Marital status: Single Current occupational status: disabled History of recent travel: No Vitals/I&O/Wt Last Vital Signs Temp 98.2 F 04/19/21 00:52 Pulse 94 04/19/21 00:52 Resp 16 04/19/21 01:33 BP 162/126 04/19/21 00:52 Pulse Ox 87 L 04/19/21 00:52 Weight last 48 hrs Weight 86.183 kg Physical Exam Const: COMMON NORMALS: patient oriented x3 HENMT: COMMON NORMALS: normocephalic and atraumatic HEAD & SCALP: normocephalic and atraumatic Chest: CHEST: Yes Symmetrical chest wall rise Resp: COMMON NORMALS: clear to auscultation bilaterally EFFORT & INSPECTION: Yes symmetric chest movement AUSCULTATION: clear to auscultation bilaterally Cardio: COMMON NORMALS: regular rate, regular rhythm, S1 normal heart sound present, S2 normal heart sound present, No gallops present (Cardio), No murmurs present (Cardio), No rub (Cardio) and Peripheral pulses 2+ throughout RATE: regular rate RHYTHM: regular rhythm HEART SOUNDS: S1 normal heart sound present and S2 normal heart sound present PERIPHERAL PULSES: Peripheral pulses 2+ throughout GI: COMMON NORMALS: Normal to inspection, nondistended, normoactive bowel sounds present, Soft to palpation, non-tender, No hepatosplenomegaly present and no masses AUSCULTATION: Yes normoactive bowel sounds PALPATION: Yes Soft to palpation and Yes No hepatosplenomegaly present RECTAL EXAM: Yes deferred Neuro: COMMON NORMALS: patient oriented x3 Data : 04/19/21 05:29 04/19/21 01:43 A&P Assessment and plan (1) Ischemic leg: Status: Acute (2) Hyponatremia: Status: Acute (3) Leukocytosis: Status: Acute Additional A&P Information 60 year old male with past medical history of BPH, hypertension, recently discharged after being managed for COVID-19 pneumonia, came in today with chief complaint of right lower extremity pain started around 3 p.m. this afternoon, patient had similar episode of right lower extremity pain last night which spontaneously resolved on its own. #Acute limb ischemia: arterial duplex LE RT: occlusion of the right popliteal artery with absence of flow distally. On heparin drip cardiology was consulted. S/P PAG and Intervention. #Hypovolemic hyponatremia: Continue normal saline 125 cc an hour Monitor BMP Monitor intake output charting #Hypertension: Continue clonidine #Recent history of COVID pneumonia: Continue home inhalers Supplemental oxygen as needed. #Leukocytosis: Likely secondary to recent steroid use, as well as reactive. Low clinical suspicion for infection. Will avoid antibiotics for now. Monitor CBC #CODE STATUS: Full code #DVT prophylaxis: On heparin Attestations Medical Necessity Statement*: Patient needs to be in hospital for the management of ALI. Anticipated LOS Greater then 2 midnights. Time Spent in Patient Care: Greater than 35 minutes (>than 50% of time spent in counselling and/or direct pt care on unit) . 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
[2021-04-19 05:41] LABS: Basophils % 0.2 %; Eosinophils # 0.3 10^3/uL (0.0-0.8); Eosinophils % 2.2 %; Hematocrit 37.4 % (42.0-52.0); Lymphocytes # 0.3 10^3/uL (0.8-4.8); Lymphocytes % 2.3 %; Mean Corpuscular HGB Conc 34.8 g/dL (30.0-36.0); Mean Corpuscular Hemoglobin 30.3 pg (28.0-34.0); Mean Corpuscular Volume 87.2 fl (80-94); Monocytes # 0.5 10^3/uL (0.2-0.9); Monocytes % 3.4 %; Neutrophils # 12.15 10^3/uL (1.8-7.7); Neutrophils % 90.9 %; Nucleated Red Blood Cells % 0 %; Platelet Count 410 10^3/cmm (130-400); Red Blood Count 4.29 10^6/uL (4.1-5.3); Red Cell Distribution Width 11.9 % (12.1-15.1); White Blood Count 13.4 10^3/uL (4.0-10.0)
[2021-04-19 05:58] LABS: INR 1.49 (0.8-1.2)
[2021-04-19 06:22] LABS: Partial Thromboplastin Time > 250.0 SECONDS (23.9-36.7)
[2021-04-19] MEDS: sodium chloride 0.9% 1,000 ML 100 ML IV (06:39)
[2021-04-19] MEDS: pantoprazole DR 40 mg Tablet PO (06:52)
[2021-04-19] MEDS: albuterol 8 gm MDI 1 PUFF INHALATION (08:10)
--- NOTE | 2021-04-19 09:21 | PC.PHAR ---
PT STATES HE WAS DISCHARGED 04/17 AND BEGAN NEW MEDS- PT STATED ONLY TOOK ONE DAY DUE TO BEING RE ADMITTED
[2021-04-19 10:08] LABS: Partial Thromboplastin Time 27.5 SECONDS (23.9-36.7)
[2021-04-19] MEDS: morphine 4 mg/mL SDV 1 mL 2 MG IVP ×3 (10:43→18:52)
[2021-04-19] MEDS: aspirin 81 mg Chew Tablet PO (10:46)
[2021-04-19] MEDS: heparin drip 25,000 UNIT/500 ML PREMIX 25 UNIT IV (11:03)
[2021-04-19] MEDS: HYDROmorphone 1 mg/mL INJ 1 mL 2 MG IVP (11:04)
[2021-04-19] MEDS: ketorolac 30 mg/mL INJ IVP (11:33)
[2021-04-19] MEDS: sodium chloride 0.9% 1,000 ML 125 ML IV (11:37)
--- NOTE | 2021-04-19 12:02 | USCV_ITS ---
Glenn Barron Age: 60 Gender: M : 1960 Exam Date: 04/19/2021 13:59 Ordering Phys: Sorin Newman MD Technologist: [email or web address] [place]am [place] [facility] [place]: POSSIBLE LV THROMBUS BP: / HR: 94 Rhythm: Sinus Technical Quality: Adequate MEASUREMENTS (Male / Female) Normal Values 2D ECHO LV Diastolic Diameter PLAX 3.8 cm 4.2 - 5.9 / 3.9 - 5.3 cm LV Systolic Diameter PLAX 2.5 cm IVS Diastolic Thickness 1.2 cm 0.6 - 1.0 / 0.6 - 0.9 cm IVS Systolic Thickness 1.6 cm LVPW Diastolic Thickness 1.5 cm 0.6 - 1.0 / 0.6 - 0.9 cm LVPW Systolic Thickness 1.6 cm LVOT Diameter 2.1 cm LV Ejection Fraction 2D Teich 49.8 % LV Ejection Fraction MOD 2C 75.7 % LV Ejection Fraction 2C AL 75.5 % LA Diameter 2.6 cm Aorta at Sinotubular Diameter 2.6 cm M-MODE Aortic Annulus Diameter 3.5 cm LA Ao Ratio MM 0.8 MV E Point Septal Separation 1.8 cm FINDINGS Left Ventricle Normal left ventricular cavity size. Normal left ventricular systolic function. No regional wall motion abnormalities. Left ventricular ejection fraction is estimated at 65 %. Right Ventricle Right Atrium Left Atrium Mitral Valve Aortic Valve Tricuspid Valve Pulmonic Valve Pericardium Aorta CONCLUSIONS Limited echo to assess LV function and to rule out left ventricle thrombus since patient had acute limb occlusion with thrombus. 1-Normal left ventricular cavity size. Normal left ventricular systolic function. No regional wall motion abnormalities. Left ventricular ejection fraction is estimated at 65 %. 2-There is no pericardial effusion. 3-No LV thrombus visualized. Abner Hannah MD (Electronically Signed) Final Date: 19 April 2021 18:24 S
--- NOTE | 2021-04-19 13:58 | PM.PN ---
Subjective Subjective: Interval history: Patient was examined multiple times throughout the day, early in the morning, after his procedure, continued to have coolness below the level of the knee, but improving, wrapped up in warm blankets, no nausea, vomiting, chest pain, palpitations Reexamined patient the afternoon, at bedside, patient's right lower extremity has warmed up, above the ankle continues to slowly warm, foot is cool to touch, DP PT pulses are nonpalpable, nurses are Doppler pulses, attempts were made to transfer patient for vascular surgery consultation, however beds are an issue, currently on the [facility] list at [facility], in addition we spoke to vascular surgery at [facility], also accepted however upon review they did not have beds Currently he is able to wiggle his toes, does complain of spasms in his right lower extremities, no rest pain, Vitals/I&O/Wt Last Vital Signs Temp 98.2 F 04/19/21 00:52 Pulse 94 04/19/21 08:17 Resp 22 H 04/19/21 11:04 BP 162/126 04/19/21 00:52 Pulse Ox 95 04/19/21 11:04 04/18/21 04/19/21 04/19/21 22:59 06:59 14:59 Intake Total 1000 / 1000 Balance 1000 / 1000 Weight last 48 hrs Weight 87.997 kg Weight 86.183 kg Physical Exam Narrative: EXAM NARRATIVE: Right lower extremity, DP PT pulses not palpable, cool to touch over the foot, wound starts to warm up at the level of the ankle, warming and flush skin above the level of the ankle up to the level of the knee, and up to the level of the thigh, able to wiggle his toes, no rest pain, Const: COMMON NORMALS: no acute distress and patient oriented x3 Resp: COMMON NORMALS: normal respiratory effort, No retractions, No use of accessory muscles and clear to auscultation bilaterally AUSCULTATION: clear to auscultation bilaterally Cardio: COMMON NORMALS: regular rate, regular rhythm, S1 normal heart sound present and S2 normal heart sound present RATE: regular rate RHYTHM: regular rhythm HEART SOUNDS: S1 normal heart sound present and S2 normal heart sound present GI: COMMON NORMALS: Normal to inspection, nondistended, normoactive bowel sounds present and Soft to palpation PALPATION: Yes Soft to palpation Neuro: COMMON NORMALS: patient oriented x3 Psych: COMMON NORMALS: mental status grossly normal Data : 04/19/21 05:29 04/19/21 01:43 A&P Assessment and plan (1) Ischemic leg: Status: Acute (2) Hyponatremia: Status: Acute (3) Leukocytosis: Status: Acute Additional A&P Information 60 year old male with past medical history of BPH, hypertension, recently discharged after being managed for COVID-19 pneumonia, came in today with chief complaint of right lower extremity pain started around 3 p.m. this afternoon, patient had similar episode of right lower extremity pain last night which spontaneously resolved on its own. #Acute limb ischemia: arterial duplex LE RT: occlusion of the right popliteal artery with absence of flow distally. On heparin drip cardiology was consulted. S/P PAG and Intervention Continue to Doppler pulses, active warming right lower extremities We will perform cardiac echocardiogram with and without contrast to evaluate for possible thrombus Currently awaiting transfer for vascular surgery consultation #Hypovolemic hyponatremia: Continue normal saline 125 cc an hour Monitor BMP Monitor intake output charting #Hypertension: Continue clonidine #Recent history of COVID pneumonia: Continue home inhalers Supplemental oxygen as needed. Continue COVID isolation #Leukocytosis: Likely secondary to recent steroid use, as well as reactive. Low clinical suspicion for infection. Will avoid antibiotics for now. Monitor CBC #Anxiety, continue Xanax 1 mg at noon, 2 mg at 6 PM scheduled #CODE STATUS: Full code #DVT prophylaxis: On heparin Attestations Medical Necessity Statement*: Patient requires hospitalization for acute limb ischemia Coding Level of Care Code Acute Load Blocker for Candelaria Ferraro Diagnoses Ischemic leg I99.8 Hyponatremia E87.1 Leukocytosis D72.829
--- NOTE | 2021-04-19 14:01 | PC.CHAP ---
Pastoral Care Encounter/Spiritual Assessment Type of Contact [] Declined supervisor title visit [] Patient/Family/Request visit [] Outpatient visit [] Follow-up visit [] Physician referral [] Code/Alert [] Routine visit [] Staff referral [] Actively dying [] Patient sleeping [] Family support [] [] Out of room [] Palliative care [] [] Receiving care in room [] Pre-surgical visit [] Trauma [] Long length of stay [] ICU visit [xx] Other: Isolation Relational/Emotional Strength [] Patient feels connected with others/family/visitors/staff [] Distress [] Loneliness/isolation [] Abandonment Spirituality of Patient [] Person of [place] [] Attends Mormonism of their [place] [] Believes in Prayer [] Reads Bible or Anabaptist materials [] There are Spiritual issues to be addressed Airline Lounge Receptionist Interventions [] Prayer [] Active listening [] Non-anxious presence [] Spiritual/emotional support [] Crisis/trauma care [] Spiritual counseling [] Bereavement support [] Provided bereavement packet [] Provided Bible/devotional materials [] Provided toy/stuffed animal, coloring book to patient or family member [] Provided Communion [] Anointing/[place] [] Salvation [] Completed spiritual assessment [] Other: Impact on Illness or Injury [] Angry [] Fearful [] Anxious [] Often cries [] Exhaustion [] Unable to work [] Unable to attend gnosticist [] Unable to walk/stand [] Unable to read [] Unable to drive [] Unable to eat/drink [] Unable to sleep [] Unable to be with family [] Patient intubated [] Other: Summary Time spent with patient
[2021-04-19] MEDS: perflutren protein-a microsphr 0.22 mg/mL SDV 3 mL IV (14:49)
[2021-04-19] MEDS: ALPRAZolam 0.5 mg Tablet 0.25 MG PO (15:07)
[2021-04-19] MEDS: ALPRAZolam 0.5 mg Tablet 0.75 MG PO (15:26)
--- NOTE | 2021-04-19 15:57 | PM.PN ---
Subjective Subjective: Interval history: Status post thrombectomy of distal aorta common iliacs bilaterally, status thrombectomy and balloon angioplasty of right SFA popliteal tibioperoneal trunk both anterior and posterior tibial vessels. Patient started complaining of right leg cramp again right leg still has a warm temperature Vitals/I&O/Wt Last Vital Signs Temp 98.2 F 04/19/21 00:52 Pulse 94 04/19/21 08:17 Resp 108 H 04/19/21 15:05 BP 162/126 04/19/21 00:52 Pulse Ox 90 04/19/21 15:05 04/19/21 04/19/21 04/19/21 06:59 14:59 22:59 Intake Total 1000 / 1000 Balance 1000 / 1000 Weight last 48 hrs Weight 194 lb Weight 190 lb Physical Exam Narrative: EXAM NARRATIVE: GENERAL: Patient is alert, awake and oriented x3. NECK: No jugular vein distension. HEENT: No cyanosis. No icterus. No pallor. HEART: Regular S1 and S2. No murmur, rub or gallop. LUNGS: Clear to auscultate bilaterally. ABDOMEN: Soft, nontender and nondistended. Positive bowel sounds. No guarding, rebound or tenderness. CENTRAL NERVOUS SYSTEM: Grossly nonfocal. EXTREMITIES: Lower extremities without edema bilaterally. Pulses not palpable in the right lower extremities, both dorsalis pedis and posterior tibial. Popliteal pulse palpable femoral palpable. Right leg is warm dorsum and toes of the right foot are cold. Patient is able to wiggle the toes. He has somewhat baseline paresthesia which was present at the time of presentation. Data : 04/19/21 05:29 04/19/21 01:43 A&P Assessment and plan (1) Ischemic leg: Patient was taken to [facility] last night from the ER. Left common femoral approach was adopted he was noted to have thrombotically occluded distal aorta subtotally occluded the right common femoral and partially occluded left common femoral. No flow was observed below mid right SFA, using penumbra catheter patient ACT was kept around 300 with heparin, penumbra catheter was used for thrombectomy using multiple runs of left common iliac to distal abdominal aorta and right common iliac right mid to distal SFA right popliteal artery and tibioperoneal trunk. We were able to establish flow into the popliteal vessel. After that selective injection showed thrombus in the distal tibial peroneal trunk, we were able then to cross into anterior and posterior tibial vessel multiple runoff number was again performed in the tibioperoneal trunk. Balloon angioplasty of both anterior posterior tibial vessel using 3.0 Spencer x200 balloon was used. Selective injection in the distal tibial vessel showed patent vessel. Multiple nitro injection was given. Peripheral runoff later confirmed sluggish flow and distal SFA popliteal and tibioperoneal trunk. No or very sluggish flow was noted in the proximal part of anterior and posterior tibial vessels. Since color of right leg improved along with the temperature of the leg which started warming, forefoot and toes remains cold. Pulses in the foot were not dopplerable popliteal pulse was palpable. Patient was kept on IV heparin. I contacted Dr. Viera our CT surgeon who advised to contact vascular surgery to see whether if they can further do something. [facility] did not have vascular surgeons as recently they moved out of the contract, [facility] was contacted they refused that they do not have a bed. [facility] [place] and I spoke to their vascular surgeon they told us they do not have bed. We have requested in case of bed availability they should call us. Patient is complaining of off-and-on pain in the calf we will continue to monitor him closely. Patient has been explained that he also has severe peripheral arterial disease and we are trying our best to save his leg I have performed what ever was possible under the circumstances here at [facility] and we are trying our best to refer him to a vascular surgery but due to complexity of the case and because of the fact no bed available it is a pill task. We we will continue IV heparin, will continue to monitor him with physical exam from time to time. Further plan will be devised as per progress of the patient. I will start patient on antiplatelet Plavix and aspirin. Statin will be added. Etiology for thromboembolic occlusion could be multifactorial including atherosclerosis distal aortic large plaque burden hypercoagulable state due to being post COVID cardioembolic source. Will ask for echocardiogram to assess LV function and presence of any thrombus. Status: Acute Attestations Medical Necessity Statement*: Patient require continuation hospitalization for above defined care. Patient is awaiting transfer due to bed situation Coding Level of Care Code Established Pt Acute Roofer for Candelaria Fwjosue Patient Type Established History Detailed Exam Detailed Medical Decision Making Moderate Complexity Diagnoses Ischemic leg I99.8
--- NOTE | 2021-04-19 17:37 | PM.TDS ---
Transfer Summary Providers Date of Admission: 04/19/21 06:20 Date of Discharge: 04/19/21 Attending Provider at Admission: Abner Hannah MD Attending Provider at Transfer: Abner Hannah MD Primary Care Provider: Chadd Diaz DO Anticipated Date of Transfer: Anticipated date of transfer: 04/19/21 Receiving Facility & Provider: Receiving Provider: [] Receiving facility: [] Diagnoses at Discharge Discharge Diagnosis (1) Ischemic leg: Status: Acute Reason for Visit Reason for Visit: LEG PAIN Hospital Course Hospital Course 60-year-old male who contracted COVID 20 days ago was admitted to the hospital with pneumonia on the of this month discharged on the past medical history significant for [id number] of tobacco abuse quit 20 years ago COPD peripheral arterial disease with claudication of right leg 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 His symptoms started almost 8 to 10 hours ago. Patient was taken to [facility] last night from the ER. Left common femoral approach was adopted he was noted to have thrombotically occluded distal abdominal aorta subtotally occluded right common and partially occluded left common iliac arteries. No flow was observed below mid right SFA, penumbra catheter was used for thrombectomy using multiple runs of left common iliac to distal abdominal aorta, in right common iliac right mid to distal SFA right popliteal artery and tibioperoneal trunk. We were able to establish flow into the right popliteal vessel. After that selective injection showed thrombus in the distal tibial peroneal trunk, i then cross into anterior and posterior tibial vessel multiple runs of pneumbra were performed in the tibioperoneal trunk. Balloon angioplasty of both anterior posterior tibial vessel using 3.0 Sanford x200 balloon was used. Selective injection in the distal tibial vessel showed patent vessel. Multiple nitro injection and aggrastat was given. Peripheral runoff later confirmed sluggish flow in distal SFA popliteal and tibioperoneal trunk. A verey sluggish flow was noted in the proximal part of anterior and posterior tibial vessels. Since color of right leg improved along with the temperature of the leg which started warming, forefoot and toes remains cold though we concluded the procedure. Pulses in the foot were not dopplerable popliteal pulse was palpable. Patient was kept on IV heparin. I contacted Dr. Viera our CT surgeon who advised to contact vascular surgery to see whether if they can further do something. Due to bed situation [facility], [facility], [facility], [facility] refused. Patient is complaining of off-and-on pain in the calf we will continue to monitor him closely while trying to find him a bed in the other hospita with vascular surgery however it is a good possibility that he will end up losing his limb despite of our extensive effort, patient understand and acknowledged it. He was kept on IV heparin given aspirin statin Plavix. In the meantime I was able to establish contact with Dr. Ramesh Cruz who helped us in getting bed in [facility]. We we will be transferring the patient through air ambulance. Patient will be accompanying CD and paperwork. Physical Exam Narrative: EXAM NARRATIVE: GENERAL: Patient is alert, awake and oriented x3. NECK: No jugular vein distension. HEENT: No cyanosis. No icterus. No pallor. HEART: Regular S1 and S2. No murmur, rub or gallop. LUNGS: Clear to auscultate bilaterally. ABDOMEN: Soft, nontender and nondistended. Positive bowel sounds. No guarding, rebound or tenderness. CENTRAL NERVOUS SYSTEM: Grossly nonfocal. EXTREMITIES: Lower extremities without edema bilaterally. 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 Routin e Exams 04/19/21 02:20 Ordered Basic Metabolic P carlie AM LABS Lab 04/20/21 04:00 Uncollected Basic Metabolic P carlie AM LABS Lab 04/21/21 04:00 Uncollected Basic Metabolic P carlie AM LABS Lab 04/22/21 04:00 Uncollected CBC Auto Diff [Co mplete Blood Count w/Auto] Routine Lab 04/19/21 05:27 Uncollected Complete Blood Co unt w/Auto AM LABS Lab 04/20/21 04:00 Uncollected Complete Blood Co unt w/Auto AM LABS Lab 04/21/21 04:00 Uncollected Complete Blood Co unt w/Auto AM LABS Lab 04/22/21 04:00 Uncollected PTT [Partial Thro mboplastin Time] S tat Lab 04/19/21 17:00 Ordered Platelet Count Q2 D Lab 04/21/21 04:00 Ordered Platelet Count Q2 D Lab 04/23/21 04:00 Ordered CV. echo lmt w/w contras [id number] Rout ine Ultrasound 04/19/21 12:02 Taken Labs from last 24 hours 04/19/21 04/19/21 04/19/21 09:46 05:29 05:29 WBC 13.4 H RBC 4.29 Hgb 13.0 Hct 37.4 L MCV 87.2 MCH 30.3 MCHC 34.8 RDW 11.9 L Plt Count 410 H MPV 10.0 Neut % (Auto) 90.9 Lymph % (Auto) 2.3 [place] % (Auto) 3.4 Eos % (Auto) 2.2 Baso % (Auto) 0.2 Neut # (Auto) 12.15 H Lymph # (Auto) 0.3 L [place] # (Auto) 0.5 Eos # (Auto) 0.3 Baso # (Auto) 0.0 Nucleated RBC % (a uto) 0 Nucleated RBCs # 0.0 PT 18.40 H D INR 1.49 H APTT 27.5 D > 250.0 H* D Sodium Potassium Chloride Carbon Dioxide Anion Gap BUN Creatinine GFR Calculation Glucose Calculated Osmolal ity Calcium Total Bilirubin AST ALT Alkaline Phosphata se Total Protein Albumin Globulin Blood Type Rho(D) Type Antibody Screen 04/19/21 04/19/21 04/19/21 01:43 01:43 01:43 WBC RBC Hgb Hct MCV MCH MCHC RDW Plt Count MPV Neut % (Auto) Lymph % (Auto) [place] % (Auto) Eos % (Auto) Baso % (Auto) Neut # (Auto) Lymph # (Auto) [place] # (Auto) Eos # (Auto) Baso # (Auto) Nucleated RBC % (a uto) Nucleated RBCs # PT 14.10 INR 1.06 APTT 23.2 L Sodium 125 L Potassium 4.4 Chloride 90 L Carbon Dioxide 21 L Anion Gap 18.4 BUN 9 Creatinine 0.6 L GFR Calculation 137.4 H Glucose 120 H Calculated Osmolal ity 260 L Calcium 8.0 L Total Bilirubin 0.6 AST 253 H ALT 115 H Alkaline Phosphata se 93 Total Protein 6.2 L Albumin 3.4 L Globulin 2.8 Blood Type O Positive Rho(D) Type Positive Antibody Screen Negative 04/19/21 04/19/21 04/19/21 01:10 01:10 01:10 WBC 18.2 H RBC 5.54 H Hgb 16.9 H Hct 47.3 MCV 85.4 MCH 30.5 MCHC 35.7 RDW 11.7 L Plt Count 426 H MPV 10.0 Neut % (Auto) 93.0 Lymph % (Auto) 1.7 Durham % (Auto) 3.0 Eos % (Auto) 1.3 Baso % (Auto) 0.3 Neut # (Auto) 16.93 H Lymph # (Auto) 0.3 L Durham # (Auto) 0.6 Eos # (Auto) 0.2 Baso # (Auto) 0.1 Nucleated RBC % (a uto) 0 Nucleated RBCs # 0.0 PT Cancelled INR Cancelled APTT Cancelled Sodium Cancelled Potassium Cancelled Chloride Cancelled Carbon Dioxide Cancelled Anion Gap Cancelled BUN Cancelled Creatinine Cancelled GFR Calculation Cancelled Glucose Cancelled Calculated Osmolal ity Cancelled Calcium Cancelled Total Bilirubin Cancelled AST Cancelled ALT Cancelled Alkaline Phosphata se Cancelled Total Protein Cancelled Albumin Cancelled Globulin Cancelled Blood Type Rho(D) Type Antibody Screen Vitals: Last Vital Signs Temp 98.2 F 04/19/21 00:52 Pulse 94 04/19/21 08:17 Resp 108 H 04/19/21 15:05 BP 162/126 04/19/21 00:52 Pulse Ox 90 04/19/21 15:05 TS Medications Medications Home Medications alprazolam 1 mg tablet See Rx Instructions .ROUTE .COMPLEX 07/13/19 [History Confirmed 04/19/21] finasteride 5 mg tablet 5 mg PO QAM 07/13/19 [History Confirmed 04/19/21] omeprazole 20 mg capsule,delayed release 20 mg PO QAM 07/13/19 [History Confirmed 04/19/21] sildenafil 100 mg tablet 100 mg PO DAILY PRN #20 tab 03/07/21 [Rx Confirmed 04/19/21] acetaminophen 500 mg PO Q4H PRN 04/12/21 [History Confirmed 04/19/21] tamsulosin 0.8 mg PO BEDTIME 04/12/21 [History Confirmed 04/19/21] albuterol sulfate 1 inh INHALATION Q6H PRN #8.5 g 04/17/21 [Rx Confirmed 04/19/21] ascorbic acid (vitamin C) 1 g PO DAILY 15 Days #15 tab 04/17/21 [Rx Confirmed 04/19/21] aspirin 81 mg PO DAILY 30 Days #30 cap 04/17/21 [Rx Confirmed 04/19/21] cholecalciferol (vitamin D3) [Vitamin D3] 50 mcg PO DAILY 30 Days #30 cap 04/17/21 [Rx Confirmed 04/19/21] clonidine HCl 0.1 mg PO BID 30 Days #60 tab 04/17/21 [Rx Confirmed 04/19/21] doxycycline hyclate 100 mg PO BID 7 Days #14 cap 04/17/21 [Rx Confirmed 04/19/21] fluticasone propion-salmeterol [Advair Diskus] 1 inh INHALATION BID #60 ea 04/17/21 [Rx Confirmed 04/19/21] ipratropium-albuterol 3 ml INHALATION Q6H.RESPIRATORY PRN 30 Days #90 ml 04/17/21 [Rx Confirmed 04/19/21] zinc 50 mg PO DAILY 15 Days #15 tab 04/17/21 [Rx Confirmed 04/19/21] Active Medications Acetaminophen (Acetaminophen 325 Mg Tablet) 650 mg PO Q6H PRN PRN Reason: Mild/Mod Pain Or Temp >/= 101 Acetaminophen (Acetaminophen 500 Mg Tablet) 500 mg PO Q4H PRN PRN Reason: Pain Acetaminophen (Acetaminophen 325 Mg Tablet) 650 mg PO Q6H PRN PRN Reason: MILD PAIN Al Hydrox/Mg Hydrox/Simethicone (Fsce-Jvg-Fcklnqbak-Svetlana 30 Ml Udc) 30 ml PO Q15M PRN PRN Reason: INDIGESTION Albuterol Sulfate (Albuterol 8 Gm Mdi) 1 puff INHALATION Q6H PRN PRN Reason: shortness of breath or wheezing Last Admin: 04/19/21 08:10 Dose: 1 puff Documented by: Alprazolam (Alprazolam 1 Mg Tablet) 1 mg PO DAILY RASHMI Alprazolam (Alprazolam 1 Mg Tablet) 2 mg PO DAILY RASHMI Aspirin (Aspirin 81 Mg Chew Tablet) 81 mg PO DAILY RASHMI Last Admin: 04/19/21 10:46 Dose: 81 mg Documented by: Aspirin (Aspirin 325 Mg Ec Tablet) 325 mg PO DAILY [facility] Atorvastatin Calcium (Atorvastatin 40 Mg Tablet) 40 mg PO BEDTIME [facility] Atropine Sulfate (Atropine 1 Mg/Ml Sdv 1 Ml) 0.5 mg IVP PRN PRN PRN Reason: Symptomatic bradycardia Bisacodyl (Bisacodyl 5 Mg Tablet) 10 mg PO DAILY PRN; Protocol PRN Reason: Constipation (see protocol) Clonidine HCl (Clonidine 0.1 Mg Tablet) 0.1 mg PO BID [facility] Last Admin: 04/19/21 10:47 Dose: Not Given Documented by: Fentanyl (Fentanyl 50 Mcg/Ml Inj 2ml) 50 mcg IVP PRN PRN PRN Reason: PAIN Heparin Sodium (Porcine) (Heparin 5,000 Unit/Ml Inj 1 Ml) 0 unit IV PRN PRN; Protocol PRN Reason: Heparin weight-base protocol Sodium Chloride (Sodium Chloride 0.9%) 1,000 mls @ 125 mls/hr IV .Q8H [facility] Last Admin: 04/19/21 11:37 Dose: 125 mls/hr Documented by: Sodium Chloride (Sodium Chloride 0.9%) 1,000 mls @ 100 mls/hr IV .Q10H [facility] Last Infusion: 04/19/21 11:38 Dose: Infused Documented by: Heparin Sodium/Sodium Chloride (Heparin Drip) 25,000 unit in 500 mls @ 0 mls/hr IV .Q0M [facility]; Protocol Last Admin: 04/19/21 11:03 Dose: 14.21 unit/kg/hr, 25 mls/hr Documented by: Magnesium Hydroxide (Magnesium Hydroxide 30 Ml Udc) 30 ml PO DAILY PRN PRN Reason: CONSTIPATION Morphine Sulfate (Morphine 4 Mg/Ml Sdv 1 Ml) 2 mg IVP Q4H PRN PRN Reason: SEVERE PAIN Last Admin: 04/19/21 15:05 Dose: 2 mg Documented by: Naloxone HCl (Naloxone 0.4 Mg/Ml Sdv) 0.1 mg IVP Q2M PRN PRN Reason: RESPIRATORY RATE < 8/MIN Nitroglycerin (Nitroglycerin 0.4 Mg Sublingual Tablet) 0.4 mg SUBLINGUAL Q5M PRN PRN Reason: CHEST PAIN Pantoprazole Sodium (Pantoprazole Dr 40 Mg Tablet) 40 mg PO QAM [facility] Last Admin: 04/19/21 06:52 Dose: 40 mg Documented by: Fluticasone/Salmeterol (Fluticasone-Salmeterol 250-50 Diskus) 1 puff INHALATION BID [facility] Last Admin: 04/19/21 08:09 Dose: 1 puff Documented by: Tamsulosin HCl (Tamsulosin 0.4 Mg Capsule) 0.8 mg PO BEDTIME [facility] Discharge Plan Discharge Patient Disposition: Home Condition: Stable Prescriptions: No Action sildenafil 100 mg tablet 100 mg PO DAILY PRN (Reason: sexual activity) Qty: 20 RF: 12 finasteride 5 mg tablet 5 mg PO QAM RF: 0 omeprazole 20 mg capsule,delayed release(DR/EC) 20 mg PO QAM RF: 0 alprazolam [Xanax] 1 mg tablet See Rx Instructions .ROUTE .COMPLEX RF: 0 acetaminophen 500 mg Tablet 500 mg PO Q4H PRN (Reason: Pain) RF: 0 tamsulosin 0.4 mg capsule 0.8 mg PO BEDTIME RF: 0 ipratropium-albuterol 0.5 mg-3 mg(2.5 mg base)/3 mL Solution For Nebulization 3 ml inhalation Q6H.RESPIRATORY PRN (Reason: shortness of breath or wheezing) 30 Days Qty: 90 RF: 0 albuterol sulfate 90 mcg/actuation HFA aerosol inhaler 1 inh inhalation Q6H PRN (Reason: shortness of breath or wheezing) Qty: 8.5 RF: 0 fluticasone propion-salmeterol [Advair Diskus] 100-50 mcg/dose blister with device 1 inh inhalation BID Qty: 60 RF: 0 ascorbic acid (vitamin C) 1,000 mg tablet 1 g PO DAILY 15 Days Qty: 15 RF: 0 zinc 50 mg tablet 50 mg PO DAILY 15 Days Qty: 15 RF: 0 cholecalciferol (vitamin D3) [Vitamin D3] 50 mcg (2,000 unit) capsule 50 mcg PO DAILY 30 Days Qty: 30 RF: 0 doxycycline hyclate 100 mg capsule 100 mg PO BID 7 Days Qty: 14 RF: 0 aspirin 81 mg capsule 81 mg PO DAILY 30 Days Qty: 30 RF: 0 clonidine HCl 0.1 mg tablet 0.1 mg PO BID 30 Days Qty: 60 RF: 0 Discharge Orders: Discharge Order (Routine); Ordered 04/19/21 Ordered By: Abner Hannah Discharge Diet: Regular Patient Instructions: Peripheral Vascular Angioplasty (DC), Opioid Safety Activity Restrictions/Additional Instructions: Follow-up with Dr. 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
[2021-04-19] MEDS: clopidogrel 300 mg Tablet PO (17:41)
[2021-04-19 19:27] LABS: Partial Thromboplastin Time 54.9 SECONDS (23.9-36.7)
--- NOTE | 2021-04-19 20:37 | PC.NURSE ---
pt requiring further surgery to rle...several facilities contacted by dr ibanez.finally found bed at [facility] in [place], [place].report phoned to kory tracy.[facility] contacted and they arrived..report given.pt transferred at 1930.
== END 2021-04-19 19:30 | disposition short-term general hospital (02) | DRG 271 ==
LOC: ER 01:28 → OR 01:52 → CSU 06:21
PROVIDERS: Nurse Practitioner Family; Admitting Provider Internal Medicine Cardiovascular Disease; Emergency Provider Emergency Medicine; PCP Internal Medicine; Visit Provider Internal Medicine Cardiovascular Disease
PROC: 04CK3ZZ Extirpation of Matter from Right Femoral Artery, Percutaneous Approach (ICD-10-PCS; principal; 2021-04-19 02:40)
PROC: 04CK3ZZ Extirpation of Matter from Right Femoral Artery, Percutaneous Approach (ICD-10-PCS; 2021-04-19 02:40)
DX: I70.221 Atherosclerosis of native arteries of extremities with rest pain, right leg (principal); E87.1 Hypo-osmolality and hyponatremia; I74.09 Other arterial embolism and thrombosis of abdominal aorta; I74.5 Embolism and thrombosis of iliac artery; I82.442 Acute embolism and thrombosis of left tibial vein; I77.4 Celiac artery compression syndrome; D72.829 Elevated white blood cell count, unspecified; N40.0 Benign prostatic hyperplasia without lower urinary tract symptoms; I10 Essential (primary) hypertension; F41.9 Anxiety disorder, unspecified; J44.9 Chronic obstructive pulmonary disease, unspecified; K21.9 Gastro-esophageal reflux disease without esophagitis; Z86.16 Personal history of COVID-19; Z79.82 Long term (current) use of aspirin; Z87.891 Personal history of nicotine dependence
CPT/HCPCS: 36415; 37184; 37224; 37228; 75625; 75710; 80053; 85025; 85347; 85610; 85730; 86850; 86900; 93005; 93926; 94640; 96374; 96375; 99285; C1725; C1760; C1769; C1887; C1894; C8924; J1170; J1644; J1885; J2250; J2270; J2405; J3010; J3490; J3535; J7030; Q9956; Q9967

== ENCOUNTER 2021-05-08 07:59 | Outpatient (CLI) | payer MEDICAID, SELFPAY | END 2021-05-08 08:00 | disposition home or self-care (01) | LOC: WOUND 08:00 | PROVIDERS: PCP Internal Medicine; Visit Provider Thoracic Surgery (Cardiothoracic Vascular Surgery) | DX: Z89.511 Acquired absence of right leg below knee (principal); Z87.891 Personal history of nicotine dependence | CPT/HCPCS: 99212; 99213; G0277 ==

== ENCOUNTER 2021-05-10 07:57 | Outpatient (CLI) | payer MEDICAID, SELFPAY | END 2021-05-10 07:58 | disposition home or self-care (01) | LOC: WOUND 07:57 | PROVIDERS: PCP Internal Medicine; Visit Provider Surgery | DX: T86.821 Skin graft (allograft) (autograft) failure (principal) | CPT/HCPCS: G0277 ==

== ENCOUNTER 2021-05-15 08:04 | Outpatient (CLI) | payer MEDICAID, SELFPAY | END 2021-05-15 08:05 | disposition home or self-care (01) | LOC: WOUND 08:05 | PROVIDERS: PCP Internal Medicine; Visit Provider Thoracic Surgery (Cardiothoracic Vascular Surgery) | DX: T86.821 Skin graft (allograft) (autograft) failure (principal) | CPT/HCPCS: 99212; G0277 ==

== ENCOUNTER 2021-05-16 09:15 | Outpatient (CLI) | payer MEDICAID, SELFPAY | END 2021-05-16 09:16 | disposition home or self-care (01) | LOC: WOUND 09:16 | PROVIDERS: PCP Internal Medicine; Visit Provider Emergency Medicine | DX: T86.821 Skin graft (allograft) (autograft) failure (principal) | CPT/HCPCS: G0277 ==

== ENCOUNTER 2021-12-06 | Outpatient (RCR) | payer MEDICAID, SELFPAY | END 2021-12-27 23:59 | disposition home or self-care (01) | LOC: SPT | PROVIDERS: PCP Internal Medicine; Visit Provider Internal Medicine | DX: S78.119A Complete traumatic amputation at level between unspecified hip and knee, initial encounter (principal); X58.XXXA Exposure to other specified factors, initial encounter | CPT/HCPCS: 97110; 97161 ==

== ENCOUNTER 2021-12-28 06:00 | Outpatient (RCR) | payer SELFPAY | END 2022-01-27 23:59 | disposition home or self-care (01) | LOC: SPT 06:00 | PROVIDERS: PCP Internal Medicine; Visit Provider Internal Medicine | DX: S78.11 Complete traumatic amputation at level between hip and knee (principal); X58.XXXD Exposure to other specified factors, subsequent encounter | CPT/HCPCS: 97110 ==

== ENCOUNTER → 2022-03-06 08:25 | Outpatient (BNVA) | payer MEDICAID, SELFPAY | PROVIDERS: PCP Internal Medicine; Visit Provider Urology | DX: N40.1 Benign prostatic hyperplasia with lower urinary tract symptoms (principal); N13.8 Other obstructive and reflux uropathy; N52.9 Male erectile dysfunction, unspecified; A63.0 Anogenital (venereal) warts; N41.1 Chronic prostatitis | CPT/HCPCS: 51741; 51798; 81003; 99213 ==

== ENCOUNTER 2022-06-20 08:10 | Outpatient (RCR) | payer MEDICAID, SELFPAY | END 2022-06-27 23:59 | disposition home or self-care (01) | LOC: SPT 08:10 | PROVIDERS: PCP Internal Medicine; Visit Provider Internal Medicine | DX: Z89.611 Acquired absence of right leg above knee (principal); Z89.612 Acquired absence of left leg above knee | CPT/HCPCS: 97110; 97116 ==

== ENCOUNTER 2022-06-28 06:00 | Outpatient (RCR) | payer SELFPAY | END 2022-07-27 23:59 | disposition home or self-care (01) | LOC: SPT 06:00 | PROVIDERS: PCP Internal Medicine; Visit Provider Internal Medicine | DX: Z89.611 Acquired absence of right leg above knee (principal) | CPT/HCPCS: 97110 ==

== ENCOUNTER 2022-07-28 06:00 | Outpatient (RCR) | payer MEDICAID, SELFPAY | END 2022-08-27 23:59 | disposition home or self-care (01) | LOC: SPT 06:00 | PROVIDERS: PCP Internal Medicine; Visit Provider Internal Medicine | DX: Z89.611 Acquired absence of right leg above knee (principal) | CPT/HCPCS: 97110; 97116 ==

== ENCOUNTER 2022-08-28 06:00 | Outpatient (RCR) | payer MEDICAID, SELFPAY | END 2022-09-26 23:59 | disposition home or self-care (01) | LOC: SPT 06:00 | PROVIDERS: PCP Internal Medicine; Visit Provider Internal Medicine | DX: Z89.611 Acquired absence of right leg above knee | CPT/HCPCS: 97110; 97116 ==

== ENCOUNTER 2022-09-27 06:00 | Outpatient (RCR) | payer MEDICAID, SELFPAY | END 2022-10-27 23:59 | disposition home or self-care (01) | LOC: SPT 06:00 | PROVIDERS: PCP Internal Medicine; Visit Provider Internal Medicine | DX: Z89.611 Acquired absence of right leg above knee (principal); Z47.1 Aftercare following joint replacement surgery | CPT/HCPCS: 97110; 97116 ==

== ENCOUNTER 2022-10-28 06:00 | Outpatient (RCR) | payer MEDICAID, SELFPAY | END 2022-11-27 23:59 | disposition home or self-care (01) | LOC: SPT 06:00 | PROVIDERS: PCP Internal Medicine; Visit Provider Internal Medicine | DX: Z89.611 Acquired absence of right leg above knee (principal) | CPT/HCPCS: 97110; 97116 ==

== ENCOUNTER 2022-11-28 06:00 | Outpatient (RCR) | payer SELFPAY | END 2022-12-27 23:59 | disposition home or self-care (01) | LOC: SPT 06:00 | PROVIDERS: PCP Internal Medicine; Visit Provider Internal Medicine | DX: Z89.611 Acquired absence of right leg above knee (principal) | CPT/HCPCS: 97110; 97116 ==

== ENCOUNTER 2022-12-28 06:00 | Outpatient (RCR) | payer MEDICAID, SELFPAY | END 2023-01-27 23:59 | disposition home or self-care (01) | LOC: SPT 06:00 | PROVIDERS: PCP Internal Medicine; Visit Provider Internal Medicine | DX: Z89.611 Acquired absence of right leg above knee (principal) | CPT/HCPCS: 97110; 97116 ==

== ENCOUNTER 2023-01-28 06:00 | Outpatient (RCR) | payer MEDICAID, SELFPAY | END 2023-02-26 23:59 | disposition home or self-care (01) | LOC: SPT 06:00 | PROVIDERS: PCP Internal Medicine; Visit Provider Internal Medicine | DX: Z89.611 Acquired absence of right leg above knee (principal) | CPT/HCPCS: 97110; 97116 ==

== ENCOUNTER 2023-02-27 06:00 | Outpatient (RCR) | payer MEDICAID, SELFPAY | END 2023-03-29 23:59 | disposition home or self-care (01) | LOC: SPT 06:00 | PROVIDERS: PCP Internal Medicine; Visit Provider Internal Medicine | DX: Z89.611 Acquired absence of right leg above knee (principal) | CPT/HCPCS: 97110; 97116 ==

== ENCOUNTER 2023-03-30 06:00 | Outpatient (RCR) | payer MEDICAID, SELFPAY | END 2023-04-29 23:59 | disposition home or self-care (01) | LOC: SPT 06:00 | PROVIDERS: PCP Internal Medicine; Visit Provider Internal Medicine | DX: Z89.611 Acquired absence of right leg above knee (principal) | CPT/HCPCS: 97110; 97116 ==

== ENCOUNTER 2023-04-30 06:00 | Outpatient (RCR) | payer SELFPAY | END 2023-05-21 13:41 | disposition home or self-care (01) | LOC: SPT 06:00 | PROVIDERS: PCP Internal Medicine; Visit Provider Internal Medicine | DX: Z89.611 Acquired absence of right leg above knee (principal) | CPT/HCPCS: 97110; 97116 ==

== ENCOUNTER 2024-01-27 10:51 | Outpatient (CLI) | payer MEDICAID, SELFPAY ==
--- NOTE | 2024-01-27 10:56 | CTR_ITS ---
PROCEDURE INFORMATION: Exam: CT Chest With Contrast; Diagnostic Exam date and time: 01/27/2024 12:55 PM Age: 63 years old Clinical indication: Condition or disease; Lung condition and disease; Other: Not specified; Patient HX: Pleural effusion; PT states he had covid severely, multiple hosptial stays, multiple blood clots resulting in loss of RT leg above knee TECHNIQUE: Imaging protocol: Diagnostic computed tomography of the chest with contrast. Radiation optimization: All CT scans at this facility use at least one of these dose optimization techniques: automated exposure control; mA and/or kV adjustment per patient size (includes targeted exams where dose is matched to clinical indication); or iterative reconstruction. Contrast material: OMNI 350; Contrast volume: 100 ml; Contrast route: INTRAVENOUS (IV); COMPARISON: CT angio chest PE protcl [id number] 04/13/2021 2:24 PM RADIATION DOSE METRICS: Total DLP (mGy-cm): 964.47 FINDINGS: Lungs: There is scarring right lower lung field. There are chronic interstitial changes upper lung bearden. 16 mm pleural-based nodule right lower lobe series 4, image 46. 14 mm subpleural nodule lateral aspect of the right lower lobe series 7, image 25. 11 mm subpleural nodule right upper lobe at the level of the hilum. Pleural spaces: [id number] right pleural effusion is new compared to the prior exam. 4.9 cm pleural-based mass along the anterior right upper lobe series 4, image 20. There is significant airspace disease in the lateral segment right middle lobe consistent with atelectasis and/or infiltrate. Heart: Unremarkable. No cardiomegaly. No pericardial effusion. Lymph nodes: Enlarged 2.3 cm right paratracheal lymph node. Mildly prominent round prevascular mediastinal lymph node 12 mm. Mildly enlarged subcarinal lymph nodes. Vasculature: Unremarkable. No aortic aneurysm. Bones/joints: Unremarkable. No acute fracture. Soft tissues: Unremarkable. CT/CT chest w con* [id number] IMPRESSION: 1. Large pleural-based mass right upper lobe 4.9 cm in keeping with malignancy. 2. Moderate right pleural collection likely malignant effusion. 3. Numerous ill-defined pleural and parenchymal right lung nodules. 4. Enlarged paratracheal mediastinal lymph node concerning for metastatic disease.
== END 2024-01-27 10:52 | disposition home or self-care (01) ==
LOC: RAD 10:52
PROVIDERS: PCP Internal Medicine; Visit Provider Internal Medicine
DX: R91.8 Other nonspecific abnormal finding of lung field (principal); J90 Pleural effusion, not elsewhere classified; R59.0 Localized enlarged lymph nodes
CPT/HCPCS: 71260

== ENCOUNTER 2024-01-27 12:12 | Outpatient (CLI) | payer MEDICAID, SELFPAY ==
--- NOTE | 2024-01-27 12:22 | CT_ITS ---
WS: [id number] CT ABDOMEN WITH AND WITHOUT CONTRAST HISTORY: PLEURAL EFFUSION Contiguous single phase 5 mm axial imaging performed to the abdomen. Oral contrast has been provided. Coronal and sagittal reformats are submitted. All CT scans at [facility] use at least one of these dose optimization techniques: automated exposure control; mA and/or kV adjustment per patient size (includes targeted exams where dose is matched to clinical indication); or iterative reconstruct ion. IV CONTRAST: Omnipaque 350; 100 mL IV. Oral contrast: Yes. DLP: 964.47 mGy.cm COMPARISON: None available. Lower thorax: Small layering RIGHT pleural effusion with pleural thickening and atelectasis. Heart is normal size. No hiatal hernia. Liver/biliary system: Normal size with no intrahepatic dilatation. Gallbladder: Normal. No gallstones or wall thickening. No pericholecystic fluid. Pancreas: Normal size pancreas. 11 x 10 mm low-attenuation mass extends anterior from the pancreatic neck and closely associated with the pancreatic duct. No additional pancreatic abnormalities. Spleen: Normal size spleen. No mass or infarct. Adrenal glands: Normal. Right kidney: Normal size RIGHT kidney with diffuse too small to characterize hypodensities. No obstr uction. Left kidney: LEFT kidney is normal size. There is delayed enhancement from the kidney. Dilated renal pelvis and dilated calyces. The proximal ureter is mildly dilated with mild circumferential enhanceme nt. Tapering of the ureter over the mid abdomen. Only an abdomen CT was requested. The pelvis was not included. Exophytic cyst from the upper pole 1.4 x 1.8 cm. Aorta: Mild atherosclerosis with no aneurysm. Atherosclerotic plaque and calcifications in the celiac axis. SMA is intact. Lymphadenopathy: None. Free fluid: None. GI tract: Appendicoliths within the appendix. No appendicitis. No GI tract obstruction. Abdominal wall: Unremarkable abdominal wall. No hernia. Visualized osseous structures: T12 and L1 compression fractures. CT/CT abdomen wo/w con [id number] IMPRESSION: 1. Small RIGHT pleural effusion with additional pleural thickening and a compo nent of loculated pleural fluid. Consolidations at the RIGHT lung base due to a telectasis. 2. Delayed enhancement LEFT kidney with mild to moderate hydronephrosis. Proxi mal ureter is dilated and proximal periureteral enhancement. The ureter begins to taper through the mid abdomen. Only the CT of the abdomen was requested. The distal ureter was not included on this examination. Consider additional evalua tion of the LEFT kidney and ureter. Noncontrast CT may be of benefit to better determine the cause of the renal obstruction. There may be a distal ureteral st one or mid inflammatory stricture or mass. 3. Moderate atherosclerosis aorta.
[2024-01-27] MEDS: iohexol 350 mg/mL 500 mL Btl (per mL) PO (13:04)
[2024-01-27] MEDS: iohexol 350 mg/mL 500 mL Btl (per mL) IV (13:05)
== END 2024-01-27 12:13 | disposition home or self-care (01) ==
LOC: RAD 12:13
PROVIDERS: PCP Internal Medicine; Visit Provider Internal Medicine
DX: J90 Pleural effusion, not elsewhere classified (principal); K86.9 Disease of pancreas, unspecified; N28.1 Cyst of kidney, acquired; K38.1 Appendicular concretions; I70.0 Atherosclerosis of aorta
CPT/HCPCS: 74170

== ENCOUNTER 2024-02-23 08:58 | Outpatient (CLI) | payer MEDICAID, SELFPAY ==
--- NOTE | 2024-02-23 09:00 | CTR_ITS ---
PROCEDURE INFORMATION: Exam: CT Abdomen And Pelvis Without Contrast Exam date and time: 02/23/2024 9:10 AM Age: 63 years old Clinical indication: Patient HX: Difficulty urinating x several months, hydronephrosis TECHNIQUE: Imaging protocol: Computed tomography of the abdomen and pelvis without contrast. Radiation optimization: All CT scans at this facility use at least one of these dose optimization techniques: automated exposure control; mA and/or kV adjustment per patient size (includes targeted exams where dose is matched to clinical indication); or iterative reconstruction. COMPARISON: 1. CT abdomen wo/w con [id number] 01/27/2024 12:[address] chest w con* [id number] 01/27/2024 12:55 PM RADIATION DOSE METRICS: Total DLP (mGy-cm): 369.42 FINDINGS: Pleural spaces: Stable moderate right pleural effusion. Partially visualized consolidative masslike area at the imaged right lower lung appears worse. Coarsened reticular markings and nodularity redemonstrated at the imaged right lower lung. Coronary arteries: Coronary artery calcification. Liver: Hepatic calcified granuloma. Otherwise unremarkable. Gallbladder and biliary ducts: Normal. No calcified stones. No ductal dilation. Pancreas: Normal. No ductal dilation. Spleen: No splenomegaly. Calcified granulomata. Adrenal glands: Normal. No mass. Kidneys and ureters: Stable moderate left hydronephrosis without obstructing calcified stone. Proximal ureteral tapering to suggested soft tissue nodularity measuring approximately 7 mm length on coronal image 64 of series 5. Fluid density left renal cyst requires no dedicated imaging follow-up. Unremarkable right kidney and ureter. Stomach and bowel: No bowel dilatation to suggest obstruction. Colonic diverticulosis without findings of diverticulitis. Appendix: Multiple appendicoliths without evidence of appendicitis. Intraperitoneal space: Unremarkable. No free air. No significant fluid collection. Vasculature: Moderate systemic atherosclerotic calcification without abdominal aortic aneurysm. Lymph nodes: Unremarkable. No enlarged lymph nodes. Urinary bladder: Nodular thickening at the midline anterosuperior urinary bladder wall measures 1.4 x 0.9 cm on axial image 193 of series 3. There is also subtle slight thickening of the posterosuperior urinary bladder on axial image 199 of series 3 and coronal image 46 of series 5. Reproductive: Mild prostatomegaly. Bones/joints: Diffuse bony demineralization without evidence of acute fracture. Stable mild compression deformities of the T12 and L1 vertebral bodies. Chronic fracture deformity of the sacrum. No aggressive osteolytic or blastic lesion. Nonspecific nonaggressive 1 cm lucency with thin sclerotic rim at the left ilium on axial image 169 of series 3. Degenerative changes along the spine and sacroiliac joints. Soft tissues: Small fat containing right inguinal hernia. CT/CT kidney stone [id number] IMPRESSION: 1. Stable moderate left hydronephrosis without calcified stone. Proximal ureteral tapering to suggested mass. 2. 1.4 cm nodular thickening at the midline anterosuperior urinary bladder wall and subtle slight thickening at the posterosuperior urinary bladder wall. Above findings raise concern for transitional cell carcinoma. Correlate with urological evaluation. 3. Partially visualized consolidative masslike area at the imaged right lower lung appears worse, concern for infection or malignancy, possibly element of atelectasis. 4. Stable moderate right pleural effusion. 5. Additional chronic and incidental findings as above. COMMENTS: Consistent with the [employer]'s Incidental Findings Committee white paper (J Am Jose Luis Radiol 2018): Any incidental renal lesion less than 1 cm or classified as too small to characterize, or any incidental cystic renal lesion characterized as simple-appearing, is likely benign. No follow-up imaging is recommended for these lesions per consensus recommendations based on imaging criteria.
== END 2024-02-23 08:59 | disposition home or self-care (01) ==
LOC: RAD 08:58
PROVIDERS: PCP Internal Medicine; Visit Provider Internal Medicine
DX: N13.30 Unspecified hydronephrosis (principal); J90 Pleural effusion, not elsewhere classified; I70.0 Atherosclerosis of aorta; J84.10 Pulmonary fibrosis, unspecified; N32.89 Other specified disorders of bladder; K38.1 Appendicular concretions; M85.80 Other specified disorders of bone density and structure, unspecified site; S32.10XD Unspecified fracture of sacrum, subsequent encounter for fracture with routine healing; X58.XXXA Exposure to other specified factors, initial encounter
CPT/HCPCS: 74176